=== PATIENT | male | born 1960 | race Caucasian/White ===

== ENCOUNTER 2019-05-22 19:24 | Inpatient (IN) ==
[2019-05-22] MEDS ORDERED: INSULIN REGULAR, HUMAN 1 UNIT/0.01 ML UNIT ONE (21:17)
[2019-05-22] MEDS ORDERED: IPRATROPIUM/ALBUTEROL 3 ML AMPUL.NEB NEB PRN (21:28)
[2019-05-22] MEDS ORDERED: METOPROLOL TARTRATE 5 MG/5 ML VIAL IV ONE ×2 (21:28→22:19)
[2019-05-22] MEDS ORDERED: POTASSIUM CHLORIDE 40 MEQ in DEXTROSE 5% IN WATER 500 ML IV PRN (21:28)
[2019-05-22] MEDS ORDERED: METOCLOPRAMIDE 10 MG/2 ML VIAL IV PRN (21:28)
[2019-05-22] MEDS ORDERED: POLYETHYLENE GLYCOL 3350 17 GM PACKET PO PRN (21:28)
[2019-05-22] MEDS ORDERED: SENNOSIDES 1 TABLET PO PRN (21:28)
[2019-05-22] MEDS ORDERED: MAGNESIUM SULFATE 2 GM/50 ML BAG IV PRN (21:28)
[2019-05-22] MEDS ORDERED: POTASSIUM CHLORIDE 20 MEQ TABLET PO PRN ×2 (21:28)
[2019-05-22] MEDS: INSULIN REGULAR, HUMAN 50 UNIT in 0.9 % SODIUM CHLORIDE 99.5 ML IV SCH (21:30)
[2019-05-22] MEDS ORDERED: cefTRIAXone 2 GM in DEXTROSE 5% IN WATER 50 ML IV SCH (21:30)
--- NOTE | 2019-05-22 21:41 | Internal Med History&Physical ---
Medical - H&P: HPI Patient information: Note initiated : 05/22/19 at 9:37 pm Service Date, if different from initiated Date: [] Patient: Houston Khoury a 58 y/o M admitted on 05/22/19 for DKA. Chief Complaint: [] History of present illness: Mr. Khoury is a 58 year old M Who was brought in by EMS and called by his sister because of concern as he was increasingly weak and was breathing oddly and reported to me that it was suspected to be [place] breathing. Is also tachycardic. Reports some nausea but no vomiting. No abdominal pain. In the ED was tachycardic with a stable blood pressure heart rates 140 initially and then came down to 120s. His blood glucose was 625 and he had a anion gap acidosis. Lactate was within normal limits elevated beta hydroxybutyric acid. Ketones in his urine with leukocyte esterase and WBCs. Patient is a poor historian but he seems to be answering questions appropriately although slowly and sometimes needing to repeat the question. Denies any chest pain or shortness of breath. Admits to to a cough. There is question whether or not he is compliant with his medications. He is on metformin but he says he does miss it sometimes. Is also hyper calcemic in the ED which improved on follow-up chemistry. Patient initially presented to [facility]. Was transferred to [facility] as he did not have any ICU beds available. Patient received 3 L IV fluid and was started on insulin drip in the ED. Review of Systems: Pertinent positives as above. Denies headache/fever/chills/vomiting/chest or abdominal pain/dyspnea/diarrhea. Remaining 10 point review of system reviewed negative Medical - H&P: PMH Medical history: Medical History Erectile dysfunction (Acute) Vision changes (Acute) Osteoarthritis (Chronic) Antinuclear factor positive (Acute) Chronic low back pain (Chronic) Hyperlipidemia (Chronic) Weakness (Chronic) Back pain with left-sided radiculopathy (Chronic) Depression with anxiety (Acute) Tobacco chew use (Chronic) Neuropathy, diabetic (Chronic) Insomnia (Chronic) Shortening, leg, congenital (Chronic) Club foot (Chronic) Gallbladder problem (Chronic) DMII (diabetes mellitus, type 2) (Chronic) Mesenteric adenitis (Chronic) Past Surgical History H/O discectomy (Chronic) H/O eye surgery (Chronic) History of tonsillectomy and adenoidectomy (Chronic) Hx of appendectomy (Chronic) H/O carpal tunnel repair (Chronic) H/O right knee surgery (Chronic) H/O left knee surgery (Chronic) H/O colonoscopy (Chronic) Social History She sounds like lives at home with daughter She was tobacco can a day former smoker Denies alcohol use Social History No Social History Section defined Medical - H&P: Meds Home Medications Medication Instructions Recorded Confirmed Type blood sugar diagnostic See Dose Instructions .ROUTE 09/24/15 02/04/16 Rx .MEDSUPPLY #100 each lancets #60 each 09/24/15 02/04/16 Rx metFORMIN [Glucophage] 500 mg PO BIDCC 30 Days #60 tab 02/18/19 Rx Gabapentin 04/21/19 History metFORMIN [Glucophage] 500 mg PO BIDCC #60 tab 04/21/19 Rx HYDROcodone/APAP 5/325MG [[place] 1 tab PO Q6HP PRN #20 tab 05/12/19 Rx 5-325Mg] Methocarbamol [Robaxin-750] 750 mg PO 3-4XD #20 tab 05/12/19 Rx Ondansetron [Zofran ODT] 4 mg SL Q4-6HP PRN #10 tab 05/12/19 Rx metFORMIN [Glucophage] 850 mg PO BIDCC #60 tab 05/12/19 Rx methylPREDNISolone [Medrol Dose 1 packet PO UD #1 tab.ds.pk 05/12/19 Rx Pack] Allergies Allergy/AdvReac Type Severity Reaction Status Date / Time pregabalin [From Lyrica] AdvReac Hallucinati Verified 04/21/19 00:41 ng Medical - H&P: Exam - Constitutional Exam: General: Lethargic, No acute Distress Eyes/N/T: EOMI, PEERL, DMM Head/Neck: neck supple, normocephalic atraumatic CV: Tachycardic but regular, No murmurs, normal s1/s2 Pulm: Clear b/l, no wheezing/rhonchi/rales Abd: soft, nontender, +BS x4 Ext: no clubbing/cyanosis/edema Neuro: Lethargic but answers questions appropriately although slowly and sometimes needing to repeat question to them. He is alert and oriented x4, no focal deficits, moves all extremities, CN 2-12 grossly intact, symmetrical strength b/l upper/lower, sensations intact b/l upper/lower Skin: warm/dry Medical - H&P: A/P - Narrative A/P Narrative: A: *DKA (DM w/neuropathy): 2/2 suspected noncompliance -On metformin at home but admits to missing on occasion *Anion gap metabolic acidosis: 2/2 above -improving with IVF *UTI: *Hypercalcemia, mild: improving with IVF *Volume depletion: *Depression/anxiety: On fluoxetine *Chronic low back pain: * P: -Insulin drip -Aggressive IVF -f/u chemistry/electrolytes -rocephin pending UC -check A1c -cxr -pt/ot -DM education referral -CM for placement needs -ppx: lovenox/h2 DNR
[2019-05-22] MEDS: 0.9 % SODIUM CHLORIDE 1,000 ML IV SCH (22:03)
[2019-05-22] MEDS: 0.9 % SODIUM CHLORIDE 10 ML SYRINGE IV SCH (22:05)
[2019-05-22 22:26] LABS: Appearance,Urine CLEAR; Bacteria,Urine 0 /hpf (0); Bilirubin,Urine NEG (NEG); Color,Urine STRAW; Culture Indicated,Urine YES; Glucose,Urine (UA) >=500 mg/dL (NEG); Ketones,Urine 80 mg/dL (NEG); Leukocyte Esterase,Urine 25 /uL (NEG); Nitrate,Urine NEG (NEG); Protein,Urine NEG (NEG); Specific Gravity,Urine 1.025 (1.000-1.035); Urine Blood 0.03 mg/dL (<0.03); Urine RBC 0 /hpf (0-1); Urine Squamous Epithelial Cell 0 /hpf (0-4); Urine WBC 25 /hpf (0-4); Urobilinogen,Urine NEG (NEG)
[2019-05-22 22:39] LABS: Blood Urea Nitrogen 49 mg/dl (6-20); Calcium 10.9 mg/dl (8.6-10.4); Carbon Dioxide 14 mmol/L (22-30); Chloride 103 mmol/L (96-108); Glomerular Filtration Rate 100; Glucose 405 mg/dL (70-105)
[2019-05-22 22:46] LABS: Estimated Average Glucose(eAG) 369 mg/dL; Hemoglobin A1C 14.5 % HGB (4.0-6.0)
[2019-05-23] MEDS: 0.9 % SODIUM CHLORIDE 1,000 ML IV SCH (03:15)
[2019-05-23] MEDS: DEXTROSE 5%-1/2NS 1,000 ML IV SCH ×3 (03:16→13:29)
[2019-05-23] MEDS ORDERED: INSULIN REGULAR, HUMAN 1 UNIT/0.01 ML UNIT ONE (03:23)
[2019-05-23] MEDS: INSULIN REGULAR, HUMAN 50 UNIT in 0.9 % SODIUM CHLORIDE 99.5 ML IV SCH ×3 (03:28→17:36)
[2019-05-23] MEDS: 0.9 % SODIUM CHLORIDE 10 ML SYRINGE IV SCH ×3 (06:04→21:55)
[2019-05-23 06:19] LABS: Basophils # (Auto) 0 K/mcL (0.0-0.3); Basophils % (Auto) 0 % (0.0-2.0); Eosinophils # (Auto) 0 K/mcL (0.0-0.7); Eosinophils % (Auto) 0 % (0.0-7.0); Granulocytes % (Auto) 85.4 % (38.0-78.0); Hematocrit 35.1 % (41.0-55.0); Hemoglobin 11.5 g/dL (13.5-16.5); Lymphocytes # (Auto) 0.6 K/mcL (1.5-4.8); Lymphocytes % (Auto) 4.7 % (15.5-49.0); Mean Cell Volume 84.5 fL (80.0-100.0); Mean Corpuscular HGB Conc 32.7 g/dL (31.0-36.0); Mean Platelet Volume 7.6 fL (7.4-10.4); Monocytes # (Auto) 1.3 K/mcL (0.1-0.9); Monocytes % (Auto) 9.9 % (1.0-12.0); Platelet Count 517 K/mcL (140-440); RBC 4.15 M/mcL (4.50-5.90); Red Cell Distribution Width 15.5 % (11.5-14.5); WBC 13.2 K/mcL (4.5-11.0)
[2019-05-23 06:37] LABS: ALT/SGPT 10 U/l (0-40); AST/SGOT 10 U/l (0-37); Albumin 2.3 gm/dL (3.2-5.2); Albumin/Globulin Ratio 0.5 (1.0-2.3); Alkaline Phosphatase 135 U/L (39-117); Beta Hydroxybutyrate 1.38 mmol/L (< 0.27); Bilirubin,Direct < 0.2 mg/dL (0.0-0.3); Bilirubin,Total 0.2 mg/dL (0.0-1.0); Blood Urea Nitrogen 40 mg/dl (6-20); Calcium 10.4 mg/dl (8.6-10.4); Globulin 4.4 gm/dL (2.2-3.7); Glomerular Filtration Rate 106; Glucose 193 mg/dL (70-105); Lactate Dehydrogenase 167 U/L (94-250); Triglycerides 135 mg/dl (<150); Uric Acid 7.6 mg/dL (2.5-8.0)
[2019-05-23 06:38] LABS: Carbon Dioxide 18 mmol/L (22-30); Chloride 112 mmol/L (96-108); Phosphorous 1.6 mg/dL (2.7-4.5)
--- NOTE | 2019-05-23 07:17 | Internal Med Progress Note ---
Medical - PN: Subj Patient information: Note initiated : 05/23/19 at 7:11 am Service Date, if different from initiated Date: [] Patient: Houston Khoury a 58 y/o M admitted on 05/22/19 for DKA. Chief Complaint: [] Interval history: Mr. Khoury is a 58 year old M Who was brought in by EMS and called by his sister because of concern as he was increasingly weak and was breathing oddly and reported to me that it was susp ected to be [place] breathing. Is also tachycardic. Reports some nausea but no vomiting. No abdominal pain. In the ED was tachycardic with a stable blood pressure heart rates 140 initially and then came down to 120s. His blood glucose was 625 and he had a anion gap acidosis. Lactate was within normal limits elevated beta hydroxybutyric acid. Ketones in his urine with leukocyte esterase and WBCs. Patient is a poor historian but he seems to be answering questions appropriately although slowly and sometimes needing to repeat the question. Denies any chest pain or shortness of breath. Admits to to a cough. There is question whether or not he is compliant with his medications. He is on metformin but he says he does miss it sometimes. Is also hyper calcemic in the ED which improved on follow-up chemistry. Patient initially presented to [facility]. Was tr ansferred to [facility] as he did not have any ICU beds available. Patient received 3 L IV fluid and was started on insulin drip in the ED. 05/23 Blood cultures from [facility] showing staph aureus in both bottles of one blood draw with Juancho/B detected. Portal of entry could be toes given breakdown between them. No overnight events. Mentation improving. She will tachycardic. Still on drip and IV fluids on board. Occasional cough and headache but no other complaints. Review of Systems: denies fever/chills/nausea/vomiting/chest or abdominal pain/dyspnea/diarrhea. Otherwise see above. - Constitutional Vitals: Vital Signs Temp Pulse Resp BP Pulse Ox 98.7 F 124 H 22 120/80 98 05/23/19 04:01 05/23/19 01:00 05/23/19 04:01 05/23/19 04:01 05/23/19 04:01 Period Temp Pulse Resp BP Sys/Valdes Pulse Ox Last 24 Hr 98.1 F-98.7 F 122-139 17-31 116-155/79-92 95-98 Intake and Output 05/22/19 05/23/19 05/23/19 21:59 05:59 13:59 Intake Total 1178 20 Output Total 1 1650 360 Balance -1 -132 -378 Weight 86.636 kg Intake & Output: Intake & Output 05/22/19 05/23/19 05/23/19 21:59 05:59 13:59 Intake Total 1178 20 Output Total 1 1650 360 Balance -1 2 -749 Weight 86.636 kg Intake: IV 1178 20 Sodium Chloride 0.9% 1,000 ml @ 1000 200 mls/hr IV .Q5H ABY Rx#: [id number] HumuLIN R 50 UNIT In Sodium 128 20 Chloride 0.9% 99.5 ml @ 7.3 UNIT/HR 14.6 mls/hr IV DUR ABY Rx#:[id number] Rocephin 2 gm In Dextrose 5% in 50 Water 50 ml @ 100 mls/hr IV Q24H ABY Rx#:[id number] Output: Urine Catheter Amount 1650 360 # of times incontinent of urine 1 Other: Urine Appearance Cloudy Clear Uretheral ([place]) Clear Cloudy Urine Color Straw Pale Uretheral ([place]) Straw Straw Urine Odor Normal Exam: General: Lethargy improving, No acute Distress Eyes/N/T: EOMI, Head/Neck: neck supple, CV: Tachycardic but regular, No murmurs, Pulm: Clear b/l, no wheezing/rhonchi/rales Abd: soft, nontender, +BS x4 Ext: no clubbing/cyanosis/edema Neuro: Lethargy improving and answering questions appropriately albeit slowly.no focal deficits, moves all extremities, Skin: warm/dry Medical - PN: Obj Da - Labs CBC & Chem 7: 05/23/19 04:24 05/23/19 04:24 Labs: Abnormal Lab Results 05/23/19 05/23/19 05/22/19 04:24 04:24 22:50 WBC 13.2 H RBC 4.15 L Hgb 11.5 L Hct 35.1 L RDW 15.5 H Plt Count 517 H Gran % 85.4 H Lymph % (Auto) 4.7 L Gran # 11.2 H Lymph # (Auto) 0.6 L [place] # (Auto) 1.3 H Chloride 112 H Carbon Dioxide 18 L 14 L Anion Gap 22.0 H BUN 40 H 49 H Glucose 193 H 405 H Hemoglobin A1c 14.5 H Calcium 10.9 H Phosphorus 1.6 L GGT 78 H Alkaline Phosphatase 135 H Albumin 2.3 L Globulin 4.4 H Albumin/Globulin Ratio 0.5 L Beta-Hydroxybutyrate 1.38 H Urine Glucose (UA) Urine Ketones Urine Occult Blood Ur Leukocyte Esterase Urine WBC 05/22/19 21:34 WBC RBC Hgb Hct RDW Plt Count Gran % Lymph % (Auto) Gran # Lymph # (Auto) [place] # (Auto) Chloride Carbon Dioxide Anion Gap BUN Glucose Hemoglobin A1c Calcium Phosphorus GGT Alkaline Phosphatase Albumin Globulin Albumin/Globulin Ratio Beta-Hydroxybutyrate Urine Glucose (UA) >=500 A Urine Ketones 80 A Urine Occult Blood 0.03 A Ur Leukocyte Esterase 25 A Urine WBC 25 H Meds: Medications Hydrocodone Bitart/Acetaminophen ([place] 5/325mg) 1 tab PO Q6HP PRN; Protocol PRN Reason: Per Pain Protocol Albuterol/Ipratropium (Duoneb) 3 ml NEB Q4HP PRN PRN Reason: Shortness Of Breath Diagnostic Test (Pha) (Accu-Chek) 1 each FS Q1 ABY Last Admin: 05/23/19 07:06 Dose: 1 each Documented by: Enoxaparin Sodium (Lovenox) 40 mg SQ DAILY ABY Famotidine (Pepcid) 20 mg IV Q12 ABY Potassium Chloride 40 meq/ (Dextrose) 520 mls @ 130 mls/hr IV UD PRN PRN Reason: Potassium < 3 Magnesium Sulfate (Magnesium Sulfate) 2 gm in 50 mls @ 50 mls/hr IV UD PRN PRN Reason: Magnesium </= 1.6 Ceftriaxone Sodium 2 gm/ (Dextrose) 50 mls @ 100 mls/hr IV Q24H ABY; Protocol Last Infusion: 05/23/19 03:25 Dose: Infused Documented by: Insulin Human Regular 50 unit/ (Sodium Chloride) 100 mls @ 14.6 mls/hr IV DUR [facility]; Protocol Last Titration: 05/23/19 06:00 Dose: 10.3 unit/hr, 20.6 mls/hr Documented by: Dextrose/Sodium Chloride (Dextrose 5%-1/2ns Iv Solution) 1,000 mls @ 200 mls/hr IV .Q5H [facility] Last Admin: 05/23/19 03:16 Dose: 200 mls/hr Documented by: Metoclopramide HCl (Reglan) 10 mg IV Q6HP PRN PRN Reason: Nausea And Vomiting Ondansetron HCl (Zofran) 4 mg IV Q4HP PRN PRN Reason: Nausea And Vomiting Polyethylene Glycol (Miralax) 17 gm PO DAILYP PRN PRN Reason: Constipation Potassium Chloride (Kdur) 40 meq PO UD PRN PRN Reason: Potssium is 3-3.5 Potassium Chloride (Kdur) 40 meq PO UD PRN PRN Reason: Potassium < 3 Senna (Senokot) 2 tab PO DAILYP PRN PRN Reason: Constipation Sodium Chloride (Saline Flush) 10 ml IV Q8 [facility] Last Admin: 05/23/19 06:04 Dose: Not Given Documented by: Medical - PN: A/P - Time Spent With Patient Total time spent is greater than 50% in coordination of care (as documented) at patient's floor/unit and/or counseling patient: - Narrative A/P Narrative: A: *DKA (DM w/neuropathy): 2/2 suspected noncompliance and infection -On metformin at home but admits to missing on occasion -A1c 14.5 *Bacteremia(Staph Aureus, Juancho/B detected) 3/4 bottles so far: -source possibly toes given skin breakdown *Sepsis: *Encephalopathy (Lethargy): 2/2 above *Anion gap metabolic acidosis: 2/2 above -improving with IVF *?UTI: *Hypercalcemia, mild: resolved with IVF *Volume depletion: improved *Depression/anxiety: On fluoxetine *Chronic low back pain: *hypophos: P: -Insulin drip transition to SQ insulin -IVF -f/u chemistry/electrolytes -zyvox/rocephin pending BC/UC -repeat BC in AM -echo pending -ID consult -restart home metformin, will need insulin therapy -pt/ot -DM education referral -CM for placement needs -ppx: lovenox/h2 DNR
[2019-05-23] MEDS: ENOXAPARIN 40 MG/0.4 ML SYRINGE SQ SCH (08:36)
[2019-05-23] MEDS: PHOSPHORUS 250 MG TABLET PO SCH ×3 (08:36→20:51)
--- NOTE | 2019-05-23 08:56 | XRay Report ---
HISTORY: Cough, diabetes FINDINGS: There is mild prominence of the interstitial lung markings bilaterally. This may be due to crowding of normal pulmonary vascular markings and some scatter artifact due to the patient's large body habitus. A superimposed mild interstitial inflammatory process cannot be entirely excluded. There is no lobar consolidation or mass.. The heart size, mediastinum and pleura are normal. IMPRESSION: Subtle nonspecific interstitial lung markings bilaterally, as described above. Interpreted and Authenticated by: Geoff Elizabeth 05/23/19
[2019-05-23] MEDS ORDERED: LINEZOLID 600 MG TABLET PO SCH (09:00)
[2019-05-23] MEDS ORDERED: FAMOTIDINE/PF 20 MG/2 ML VIAL IV SCH (09:00)
[2019-05-23] MEDS ORDERED: MAG HYDROX/AL HYDROX/SIMETH 30 ML ORAL.SUSP PO ONE (09:00)
[2019-05-23] MEDS ORDERED: METHOCARBAMOL 750 MG TABLET PO PRN (09:41)
[2019-05-23] MEDS ORDERED: LINEZOLID 600 MG/300 ML BAG IV SCH (10:30)
[2019-05-23] MEDS ORDERED: METOPROLOL TARTRATE 5 MG/5 ML VIAL IV ONE (10:43)
[2019-05-23] MEDS: ONDANSETRON 4 MG/2 ML VIAL IV PRN (10:43)
[2019-05-23] MEDS ORDERED: DAPTOmycin 500 MG VIAL IV SCH (10:45)
[2019-05-23] MEDS ORDERED: BACLOFEN 10 MG TABLET PO ONE (10:53)
[2019-05-23] MEDS ORDERED: SIMETHICONE 80 MG TAB.CHEW CHEWED ONE (10:53)
[2019-05-23] MEDS: HYDROcodone/APAP 5/325MG TABLET PO PRN ×2 (11:04→20:51)
[2019-05-23] MEDS: PANTOPRAZOLE 40 MG PACKET PO SCH (11:13)
[2019-05-23 11:31] LABS: Blood Urea Nitrogen 32 mg/dl (6-20); Calcium 10.1 mg/dl (8.6-10.4); Carbon Dioxide 20 mmol/L (22-30); Glomerular Filtration Rate 112; Glucose 157 mg/dL (70-105)
[2019-05-23 11:32] LABS: Chloride 111 mmol/L (96-108)
[2019-05-23 11:48] LABS: Anisocytosis FEW (NONE SEEN); Band Neutrophils % 1 % (0-10); Lymphocytes % 3 % (15-49); Monocytes % (Manual) 7 % (1-12); Myelocytes % 1 % (0-0); Platelet Estimate INCREASED (NORMAL); RBC Morphology ABNORM (NORMAL); Segmented Neutrophils % 88 % (38-78)
[2019-05-23] MEDS ORDERED: INSULIN GLARGINE, HUMAN 1 UNIT/0.01 ML SQ ONE (11:49)
[2019-05-23] MEDS ORDERED: DEXTROSE 50% 50 ML VIAL IV PRN (11:51)
[2019-05-23] MEDS ORDERED: DEXTROSE 31 GM ORAL.SUSP PO PRN (11:51)
[2019-05-23] MEDS: ceFAZolin 1 GM VIAL IV SCH ×2 (11:58→21:56)
[2019-05-23] MEDS ORDERED: 0.45 % SODIUM CHLORIDE 1,000 ML IV ONE (13:22)
[2019-05-23] MEDS ORDERED: INSULIN REGULAR, HUMAN 50 UNIT in 0.9 % SODIUM CHLORIDE 99.5 ML IV PRN (16:00)
[2019-05-23] MEDS: INSULIN LISPRO 1 UNIT/0.01 ML UNIT SQ SCH ×2 (16:33→21:03)
[2019-05-23] MEDS: metFORMIN 850 MG TABLET PO SCH (16:33)
--- NOTE | 2019-05-23 17:41 | Infectious Disease Consult ---
History of Present Illness Patient information: Note initiated : 05/23/19 at 5:38 pm Service Date, if different from initiated Date: [] Patient: Houston Khoury 58 y/o M admitted on 05/22/19 for DKA. Chief Complaint: [] Consult date: 05/23/19 Requesting Physician: Mega Ornelas Reason for Consult: Staph aureus bacteremia Chief complaint: confusion History of present illness: HPI obtained from records as pt is confused and no family at bedside: Mr. Khoury is a 58 year old man with PMHx of : - uncontrolled DM2, on metformin He was brought in by EMS after his sister called because of weakness, change in breathing pattern, nausea. In addition he had also been c/o neck pain since last 3 weeks or so, worse with movements. He was seen in [facility] ED on 05/12 for that, and sent home with Medrol dose pack after CT neck w/o contrast showed osteoarthritis and degenerative disc ds, did not show any evidence of infection. Of note his BS at that time was 322. A referral to Dr Echeverria was made to manage his diabetes. He had similar visits to [facility] ED in 04/2019 for hyperglycemia. Patient initially presented to [facility]. Was transferred to [facility] as he did not have any ICU beds available. Patient received 3 L IV fluid and was started on insulin drip in the ED over there. At admission to [facility] on 05/22; HR 140s , afebrile, RR 28, BP 120/106. Labs showed WBC of 9, ESR 105, blood glucose was 625 and he had a anion gap acidosis with elevated beta hydroxybutyric acid. UA had +ve Ketones with leukocyte esterase and WBCs. Blood cultures from [facility] showing staph aureus in both bottles of one blood draw initially reported as Juancho/B detected but this was inaccurate. Dr. Martell discussed with lab and the previously reported result was clarified. Pt was on PO LInezolid and IV ceftriaxone initially per primary team which was changed to IV Cefazolin on 05/23. His anion gap closed on 05/23 . Review of Systems ROS unobtainable: due to mental status All systems PM: reviewed and no additional remarkable complaints except as stated Past History Past family history: no sick contacts Medications and Allergies Home Medications Medication Instructions Recorded Confirmed Type Ondansetron [Zofran ODT] 4 mg SL Q4-6HP PRN #10 tab 05/12/19 05/23/19 Rx metFORMIN [Glucophage] 850 mg PO BIDCC #60 tab 05/12/19 05/23/19 Rx Blood-Glucose Meter [Blood Glucose 1 each [facility] 05/23/19 05/23/19 History Monitoring] Hydrocodone/APAP 7.5/325Mg [[place] 1 tab PO Q6HP PRN 05/23/19 05/23/19 History 7.5-325Mg] Lancets [Blood Lancets] 1 each [facility] 05/23/19 05/23/19 History Methocarbamol [Robaxin-750] 750 mg PO 3-4XD PRN 05/23/19 05/23/19 History Allergies Allergy/AdvReac Type Severity Reaction Status Date / Time pregabalin [From Lyrica] AdvReac Intermediate Hallucinati Verified 05/23/19 06:40 ng Physical Examination Vital signs: Temp Pulse Resp BP Pulse Ox 36.2 C 127 H 23 H 141/88 96 05/23/19 08:01 05/23/19 14:18 05/23/19 14:18 05/23/19 14:01 05/23/19 14:18 General appearance: appears uncomfortable Eyes pulmonary: nonicteric ENT: oropharynx moist Auscultation: bilateral: clear (decreased BS at bases, rest clear) Cardiovascular: other (s1 s2 normal, has 2/6 systolic murmur at Rt 2nd ICS) Gastrointestinal: normoactive bowel sounds, non-tender, non-distended Integumentary: other (has onychomycosis of both feet toenails, dry skin over both forefeet) Musculoskeletal: joint tenderness (over lower cervical and upper thoracic spine, no fluctuance) unable to assess due to mental status Results - Laboratory Findings CBC and BMP: 05/24/19 03:41 05/24/19 03:41 Abnormal lab findings: Abnormal Labs 05/22/19 05/22/19 05/23/19 21:34 22:50 04:24 WBC 13.2 H RBC 4.15 L Hgb 11.5 L Hct 35.1 L RDW 15.5 H Plt Count 517 H Gran % 85.4 H Lymph % (Auto) 4.7 L Gran # 11.2 H Lymph # (Auto) 0.6 L [place] # (Auto) 1.3 H Seg Neutrophils % Lymphocytes % Myelocytes % Platelet Estimate RBC Morphology Anisocytosis Chloride Carbon Dioxide 14 L Anion Gap 22.0 H BUN 49 H Creatinine Glucose 405 H Hemoglobin A1c 14.5 H Calcium 10.9 H Phosphorus GGT Alkaline Phosphatase C-Reactive Protein Albumin Globulin Albumin/Globulin Ratio Beta-Hydroxybutyrate Urine Glucose (UA) >=500 A Urine Ketones 80 A Urine Occult Blood 0.03 A Ur Leukocyte Esterase 25 A Urine WBC 25 H 05/23/19 05/23/19 05/23/19 04:24 04:24 10:41 WBC RBC Hgb Hct RDW Plt Count Gran % Lymph % (Auto) Gran # Lymph # (Auto) [place] # (Auto) Seg Neutrophils % 88 H Lymphocytes % 3 L Myelocytes % 1 H Platelet Estimate Increased A RBC Morphology Abnorm A Anisocytosis Few A Chloride 112 H 111 H Carbon Dioxide 18 L 20 L Anion Gap BUN 40 H 32 H Creatinine 0.6 L Glucose 193 H 157 H Hemoglobin A1c Calcium Phosphorus 1.6 L GGT 78 H Alkaline Phosphatase 135 H C-Reactive Protein Albumin 2.3 L Globulin 4.4 H Albumin/Globulin Ratio 0.5 L Beta-Hydroxybutyrate 1.38 H Urine Glucose (UA) Urine Ketones Urine Occult Blood Ur Leukocyte Esterase Urine WBC 05/23/19 10:41 WBC RBC Hgb Hct RDW Plt Count Gran % Lymph % (Auto) Gran # Lymph # (Auto) [place] # (Auto) Seg Neutrophils % Lymphocytes % Myelocytes % Platelet Estimate RBC Morphology Anisocytosis Chloride Carbon Dioxide Anion Gap BUN Creatinine Glucose Hemoglobin A1c Calcium Phosphorus GGT Alkaline Phosphatase C-Reactive Protein 10.4 H Albumin Globulin Albumin/Globulin Ratio Beta-Hydroxybutyrate Urine Glucose (UA) Urine Ketones Urine Occult Blood Ur Leukocyte Esterase Urine WBC Microbiology: Microbiology 05/22/19 21:34 Urine - [place] Urine Culture - Preliminary 05/22/19 22:55 Nose MRSA (PCR) - Final Assessment and Plan - Narrative A/P Narrative: A: 1. MSSA bacteremia: mec A gene neg, / bottles +ve on 05/22 - risk factors: uncontrolled DM2, dry skin over both feet, onychomycosis, ? Staphylococcus aureus colonization - high risk for endocarditis 2. Diabetic ketoacidosis: triggered by (1), recent prescription of Medrol dose pack, continued use of metformin instead of insulin (per PCP) - encephalopathy Recommendations: - Start IV Cefazolin 2 gm q8 hrs. Stop all other antibiotics - Repeat blood Cx every other day until negative blood Cx x 48 hrs - await TTE report - will decide if LITZY needed or not - aggressive blood sugar control to keep FSBS between 140-180 mg% - will have low threshold for imaging of other parts of body such as joints/spine if symptoms warrant, persistent +ve blood Cx will follow Roland Martell MD Infectious diseases
[2019-05-23] MEDS ORDERED: INSULIN GLARGINE, HUMAN 1 UNIT/0.01 ML SQ SCH (21:00)
[2019-05-24] MEDS: HYDROcodone/APAP 5/325MG TABLET PO PRN ×4 (01:13→21:33)
[2019-05-24] MEDS: ceFAZolin 1 GM VIAL IV SCH ×3 (05:49→21:43)
[2019-05-24] MEDS: 0.9 % SODIUM CHLORIDE 10 ML SYRINGE IV SCH ×4 (05:50→21:44)
[2019-05-24 06:29] LABS: Basophils # (Auto) 0 K/mcL (0.0-0.3); Basophils % (Auto) 0.5 % (0.0-2.0); Eosinophils # (Auto) 0.1 K/mcL (0.0-0.7); Eosinophils % (Auto) 0.6 % (0.0-7.0); Hematocrit 30.7 % (41.0-55.0); Hemoglobin 9.9 g/dL (13.5-16.5); Lymphocytes # (Auto) 0.9 K/mcL (1.5-4.8); Lymphocytes % (Auto) 9.8 % (15.5-49.0); Mean Cell Volume 83.6 fL (80.0-100.0); Mean Corpuscular HGB Conc 32.4 g/dL (31.0-36.0); Mean Platelet Volume 8.2 fL (7.4-10.4); Monocytes % (Auto) 11.1 % (1.0-12.0); Platelet Count 415 K/mcL (140-440); RBC 3.67 M/mcL (4.50-5.90); Red Cell Distribution Width 14.6 % (11.5-14.5)
[2019-05-24 06:48] LABS: ALT/SGPT 19 U/l (0-40); AST/SGOT 32 U/l (0-37); Albumin 2.6 gm/dL (3.2-5.2); Albumin/Globulin Ratio 0.7 (1.0-2.3); Alkaline Phosphatase 140 U/L (39-117); Bilirubin,Direct < 0.2 mg/dL (0.0-0.3); Bilirubin,Total < 0.2 mg/dL (0.0-1.0); Calcium 9.6 mg/dl (8.6-10.4); Carbon Dioxide 22 mmol/L (22-30); Chloride 103 mmol/L (96-108); Globulin 3.8 gm/dL (2.2-3.7); Glomerular Filtration Rate 112; Glucose 210 mg/dL (70-105); Lactate Dehydrogenase 144 U/L (94-250); Triglycerides 163 mg/dl (<150); Uric Acid 5.5 mg/dL (2.5-8.0)
[2019-05-24 06:49] LABS: Blood Urea Nitrogen 20 mg/dl (6-20); Phosphorous 2.5 mg/dL (2.7-4.5)
[2019-05-24] MEDS: PANTOPRAZOLE 40 MG PACKET PO SCH (07:30)
[2019-05-24] MEDS: INSULIN LISPRO 1 UNIT/0.01 ML UNIT SQ SCH ×4 (07:33→21:32)
[2019-05-24] MEDS: metFORMIN 850 MG TABLET PO SCH ×2 (07:34→18:05)
--- NOTE | 2019-05-24 07:54 | Internal Med Progress Note ---
Medical - PN: Subj Patient information: Note initiated : 05/24/19 at 7:45 am Service Date, if different from initiated Date: [] Patient: Houston Khoury a 58 y/o M admitted on 05/22/19 for DKA. Chief Complaint: [] Interval history: Mr. Khoury is a 58 year old M Who was brought in by EMS and called by his sister because of concern as he was increasingly weak and was breathing oddly and reported to me that it was susp ected to be [place] breathing. Is also tachycardic. Reports some nausea but no vomiting. No abdominal pain. In the ED was tachycardic with a stable blood pressure heart rates 140 initially and then came down to 120s. His blood glucose was 625 and he had a anion gap acidosis. Lactate was within normal limits elevated beta hydroxybutyric acid. Ketones in his urine with leukocyte esterase and WBCs. Patient is a poor historian but he seems to be answering questions appropriately although slowly and sometimes needing to repeat the question. Denies any chest pain or shortness of breath. Admits to to a cough. There is question whether or not he is compliant with his medications. He is on metformin but he says he does miss it sometimes. Is also hyper calcemic in the ED which improved on follow-up chemistry. Patient initially presented to [facility]. Was tr ansferred to [facility] as he did not have any ICU beds available. Patient received 3 L IV fluid and was started on insulin drip in the ED. 05/23 Blood cultures from [facility] showing staph aureus in both bottles of one blood draw initially reported as [place]/B detected but this was inaccurate. Dr. post discussed with lab and the previously reported result was clarified. Portal of entry could be toes given breakdown between them. No overnight events. Mentation improving. She will tachycardic. Still on drip and IV fluids on board. Occasional cough and headache but no other complaints. 05/24 Patient feeling better today. Alert and awake and able to tolerate diet. Asked how long he is been here in a few other orientation questions and explained to him that he was first at [facility] and then brought over here and he stated "that is why I was confused on exactly where I was at. " Does admit to neck pain which is new started 3 weeks ago. But it occurred while he was in his car in the drive-through and twisted his neck with immediate pain and is been bothering him since but does admit that is a little bit better. Does have chronic back pain but that is not any worse. No other complaints or overnight events. Urine culture growing staph aureus. Check neck MRI today and follow-up on echo results. Review of Systems: denies headache/fever/chills/nausea/vomiting/chest or abdominal pain/cough/dyspnea/diarrhea. Otherwise see above. - Constitutional Vitals: Vital Signs Temp Pulse Resp BP Pulse Ox 98.4 F 129 H 17 159/97 96 05/24/19 00:01 05/23/19 18:51 05/24/19 06:01 05/24/19 06:01 05/24/19 02:00 Period Temp Pulse Resp BP Sys/Valdes Pulse Ox Last 24 Hr 97.2 F-98.4 F 118-133 16-27 93-159/50-105 94-98 Intake and Output 05/23/19 05/24/19 05/24/19 21:59 05:59 13:59 Intake Total 600 Output Total 550 610 Balance -550 -10 Weight 87.271 kg Intake & Output: Intake & Output 05/23/19 05/24/19 05/24/19 21:59 05:59 13:59 Intake Total 600 Output Total 550 610 Balance -550 -10 Weight 87.271 kg Intake: Oral 600 Output: Urine Catheter Amount 550 325 Void Amount 285 Other: Urine Appearance Clear Urine Color Light Faith Exam: General: alert and awake, No acute Distress Eyes/N/T: EOMI, Head/Neck: neck supple, CV: Tachycardic but regular, No murmurs, Pulm: Clear b/l, no wheezing/rhonchi/rales Abd: soft, nontender, +BS x4 Ext: no clubbing/cyanosis/edema Neuro: Alert and awake, mentation significantly improved no focal deficits, indicating appropriately. Skin: warm/dry Medical - PN: Obj Da - Labs CBC & Chem 7: 05/24/19 03:41 05/24/19 03:41 Labs: Abnormal Lab Results 05/24/19 05/24/19 05/24/19 03:41 03:41 03:41 WBC RBC 3.67 L Hgb 9.9 L Hct 30.7 L RDW 14.6 H Plt Count Gran % Lymph % (Auto) 9.8 L Gran # Lymph # (Auto) 0.9 L [place] # (Auto) 1.0 H Seg Neutrophils % Lymphocytes % Myelocytes % Platelet Estimate RBC Morphology Anisocytosis Chloride Carbon Dioxide Anion Gap BUN Creatinine 0.6 L Glucose 210 H Hemoglobin A1c Calcium Phosphorus 2.5 L GGT 107 H Alkaline Phosphatase 140 H C-Reactive Protein 8.3 H Albumin 2.6 L Globulin 3.8 H Albumin/Globulin Ratio 0.7 L Triglycerides 163 H Beta-Hydroxybutyrate Urine Glucose (UA) Urine Ketones Urine Occult Blood Ur Leukocyte Esterase Urine WBC 05/23/19 05/23/19 05/23/19 10:41 10:41 04:24 WBC RBC Hgb Hct RDW Plt Count Gran % Lymph % (Auto) Gran # Lymph # (Auto) [place] # (Auto) Seg Neutrophils % 88 H Lymphocytes % 3 L Myelocytes % 1 H Platelet Estimate Increased A RBC Morphology Abnorm A Anisocytosis Few A Chloride 111 H Carbon Dioxide 20 L Anion Gap BUN 32 H Creatinine 0.6 L Glucose 157 H Hemoglobin A1c Calcium Phosphorus GGT Alkaline Phosphatase C-Reactive Protein 10.4 H Albumin Globulin Albumin/Globulin Ratio Triglycerides Beta-Hydroxybutyrate Urine Glucose (UA) Urine Ketones Urine Occult Blood Ur Leukocyte Esterase Urine WBC 05/23/19 05/23/19 05/22/19 04:24 04:24 22:50 WBC 13.2 H RBC 4.15 L Hgb 11.5 L Hct 35.1 L RDW 15.5 H Plt Count 517 H Gran % 85.4 H Lymph % (Auto) 4.7 L Gran # 11.2 H Lymph # (Auto) 0.6 L [place] # (Auto) 1.3 H Seg Neutrophils % Lymphocytes % Myelocytes % Platelet Estimate RBC Morphology Anisocytosis Chloride 112 H Carbon Dioxide 18 L 14 L Anion Gap 22.0 H BUN 40 H 49 H Creatinine Glucose 193 H 405 H Hemoglobin A1c 14.5 H Calcium 10.9 H Phosphorus 1.6 L GGT 78 H Alkaline Phosphatase 135 H C-Reactive Protein Albumin 2.3 L Globulin 4.4 H Albumin/Globulin Ratio 0.5 L Triglycerides Beta-Hydroxybutyrate 1.38 H Urine Glucose (UA) Urine Ketones Urine Occult Blood Ur Leukocyte Esterase Urine WBC 05/22/19 21:34 WBC RBC Hgb Hct RDW Plt Count Gran % Lymph % (Auto) Gran # Lymph # (Auto) [place] # (Auto) Seg Neutrophils % Lymphocytes % Myelocytes % Platelet Estimate RBC Morphology Anisocytosis Chloride Carbon Dioxide Anion Gap BUN Creatinine Glucose Hemoglobin A1c Calcium Phosphorus GGT Alkaline Phosphatase C-Reactive Protein Albumin Globulin Albumin/Globulin Ratio Triglycerides Beta-Hydroxybutyrate Urine Glucose (UA) >=500 A Urine Ketones 80 A Urine Occult Blood 0.03 A Ur Leukocyte Esterase 25 A Urine WBC 25 H Meds: Medications Hydrocodone Bitart/Acetaminophen ([place] 5/325mg) 1 tab PO Q6HP PRN; Protocol PRN Reason: Per Pain Protocol Last Admin: 05/24/19 01:13 Dose: 1 tab Documented by: Albuterol/Ipratropium (Duoneb) 3 ml NEB Q4HP PRN PRN Reason: Shortness Of Breath Cefazolin Sodium (Ancef) 2 gm IV Q8H [facility] Last Admin: 05/24/19 05:49 Dose: 2 gm Documented by: Dextrose (Dextrose 50%) 0 ml IV UD PRN PRN Reason: Hypoglycemia Diagnostic Test (Pha) (Accu-Chek) 1 each FS [facility] Last Admin: 05/24/19 07:30 Dose: 1 each Documented by: Enoxaparin Sodium (Lovenox) 40 mg SQ DAILY [facility] Last Admin: 05/23/19 08:36 Dose: 40 mg Documented by: Glucose (Insta-Glucose) 15 gm PO PRN PRN PRN Reason: Hypoglycemia Potassium Chloride 40 meq/ (Dextrose) 520 mls @ 130 mls/hr IV UD PRN PRN Reason: Potassium < 3 Magnesium Sulfate (Magnesium Sulfate) 2 gm in 50 mls @ 50 mls/hr IV UD PRN PRN Reason: Magnesium </= 1.6 Insulin Human Regular 50 unit/ (Sodium Chloride) 100 mls @ 14.6 mls/hr IV Q6HP PRN; Protocol PRN Reason: HypERglycemia Insulin Glargine (Lantus) 10 unit SQ BID [facility] Last Admin: 05/23/19 21:02 Dose: 10 unit Documented by: Insulin Human Lispro (Humalog) 0 unit SQ ACHS [facility]; Protocol Last Admin: 05/24/19 07:33 Dose: 2 units Documented by: Met[facility] ([facility]) [facility] Last Admin: 05/24/19 07:34 Dose: 850 mg Documented by: Methocarbamol (Robaxin) 750 mg PO 3-4XD PRN PRN Reason: Muscle Spasm Metoclopramide HCl (Reglan) 10 mg IV Q6HP PRN PRN Reason: Nausea And Vomiting Ondansetron HCl (Zofran) 4 mg IV Q4HP PRN PRN Reason: Nausea And Vomiting Last Admin: 05/23/19 10:43 Dose: 4 mg Documented by: Pantoprazole Sodium (Protonix) 40 mg PO QAMAC [facility] Last Admin: 05/24/19 07:30 Dose: 40 mg Documented by: Polyethylene Glycol (Miralax) 17 gm PO DAILYP PRN PRN Reason: Constipation Potassium Chloride (Kdur) 40 meq PO UD PRN PRN Reason: Potssium is 3-3.5 Potassium Chloride (Kdur) 40 meq PO UD PRN PRN Reason: Potassium < 3 Senna (Senokot) 2 tab PO DAILYP PRN PRN Reason: Constipation Sodium Chloride (Saline Flush) 10 ml IV Q8 [facility] Last Admin: 05/24/19 05:50 Dose: 10 ml Documented by: Sodium Phosphate (Pot Phosphate Neutral) 250 mg PO TID [facility] Stop: 05/24/19 09:01 Last Admin: 05/23/19 20:51 Dose: 250 mg Documented by: Medical - PN: A/P - Time Spent With Patient Total time spent is greater than 50% in coordination of care (as documented) at patient's floor/unit and/or counseling patient: - Narrative A/P Narrative: A: *DKA (DM w/neuropathy): 2/2 suspected noncompliance and infection -On metformin at home but admits to missing on occasion -A1c 14.5 *Bacteremia(Staph Aureus) 3/4 bottles so far: -source possibly toes given skin breakdown *UTI (Staph Aureus): *Sepsis: improved *Encephalopathy (Lethargy): 2/2 above *Anion gap metabolic acidosis: 2/2 above -resolved *Hypercalcemia, mild: resolved with IVF *Volume depletion: improved *Depression/anxiety: On fluoxetine *Chronic low back pain: *hypophos: P: -restart home metformin, started lantus (titrate up) -Neck MRI -repeat BC today -ID following, cefazolin -echo pending -pt/ot -DM education referral -CM for placement needs -ppx: lovenox/h2 DNR
[2019-05-24] MEDS ORDERED: POTASSIUM CHLORIDE 20 MEQ in 0.45 % SODIUM CHLORIDE 1,000 ML IV SCH (08:00)
[2019-05-24] MEDS: METOPROLOL TARTRATE 5 MG/5 ML VIAL IV SCH ×2 (08:21→10:23)
[2019-05-24] MEDS: ONDANSETRON 4 MG/2 ML VIAL IV PRN (08:36)
[2019-05-24] MEDS ORDERED: INSULIN GLARGINE, HUMAN 1 UNIT/0.01 ML SQ SCH (09:00)
[2019-05-24] MEDS: PHOSPHORUS 250 MG TABLET PO SCH (09:01)
[2019-05-24] MEDS: ENOXAPARIN 40 MG/0.4 ML SYRINGE SQ SCH (09:01)
[2019-05-24] MEDS ORDERED: DILTIAZEM 25 MG/5 ML VIAL IV ONE (10:23)
[2019-05-24] MEDS ORDERED: diphenhydrAMINE 25 MG CAPSULE PO PRN ×2 (10:25→12:41)
[2019-05-24] MEDS ORDERED: DEXTROSE 31 GM ORAL.SUSP PO PRN (12:41)
[2019-05-24] MEDS ORDERED: MAGNESIUM SULFATE 2 GM/50 ML BAG IV PRN (12:41)
[2019-05-24] MEDS ORDERED: METOCLOPRAMIDE 10 MG/2 ML VIAL IV PRN (12:41)
[2019-05-24] MEDS ORDERED: IPRATROPIUM/ALBUTEROL 3 ML AMPUL.NEB NEB PRN (12:41)
[2019-05-24] MEDS ORDERED: POTASSIUM CHLORIDE 20 MEQ TABLET PO PRN ×2 (12:41)
[2019-05-24] MEDS ORDERED: SENNOSIDES 1 TABLET PO PRN (12:41)
[2019-05-24] MEDS ORDERED: DEXTROSE 50% 50 ML VIAL IV PRN (12:41)
[2019-05-24] MEDS ORDERED: ONDANSETRON 4 MG/2 ML VIAL IV PRN (12:41)
[2019-05-24] MEDS ORDERED: INSULIN REGULAR, HUMAN 50 UNIT in 0.9 % SODIUM CHLORIDE 99.5 ML IV PRN (12:41)
[2019-05-24] MEDS ORDERED: METOPROLOL TARTRATE 5 MG/5 ML VIAL IV ONE (14:18)
[2019-05-24] MEDS: NICOTINE 21 MG PATCH TOPICAL SCH (14:42)
[2019-05-24] MEDS: METOPROLOL TARTRATE 25 MG TABLET PO SCH ×2 (14:43→21:33)
[2019-05-24] MEDS: POLYETHYLENE GLYCOL 3350 17 GM PACKET PO PRN (15:32)
--- NOTE | 2019-05-24 15:42 | Magnetic Resonance Report ---
History: Severe neck pain radiating to the arm, possible osteomyelitis TECHNIQUE: Multiplanar imaging was performed using multiple pulse sequences in short acquisitions. Patient was unable to remain motionless due to uncontrollable hiccups and severe neck pain. Nursing did provide pain medication during the exam. FINDINGS: There is motion artifact on all pulse sequences. On the STIR pulse sequence there is abnormal increased signal throughout the body of C4 with more subtle increased uptake in the body of C5. There is also subtle increased signal in the nucleus pulposus at C4-5. Posterior to the body of C4-C5, there is a band of abnormal increased signal. It measures proximately 2 to 3 mm thickness and 2.2 cm in length. There is no collapse of the vertebral bodies. There is moderate central canal stenosis at C4-5 with subtle flattening of the cord. The spinal canal stenosis is partially due to moderate size spurs along the posterior border of the C4-C5 disc, which were apparent on the prior CT done on 05/12/19. The spinal canal stenosis is worse on today's study. The C3-4 disc is moderately narrowed due to chronic degeneration. The C5-C6 disc is normal. There is moderate stenosis right-sided neural foramen at C5-C6 due to arthritis in the facet. At C6-7 there is a small midline bulge which is not causing stenosis. IMPRESSION: Limited study due to patient motion artifact. Abnormal signal in the bodies of C4 and C5 which is suggestive of osteomyelitis. Possible small epidural abscess posterior to the bodies of C4 and C5 resulting in moderate spinal canal stenosis Stenosis of the right-sided neural foramen at C5-C6 due to spurs Dr. Ornelas was called with the results Interpreted and Authenticated by: Geoff Elizabeth 05/24/19
[2019-05-24] MEDS: METHOCARBAMOL 750 MG TABLET PO PRN (18:05)
[2019-05-24] MEDS ORDERED: MELATONIN 3 MG TABLET PO SCH ×2 (21:00)
[2019-05-24] MEDS: INSULIN GLARGINE, HUMAN 1 UNIT/0.01 ML SQ SCH (21:32)
[2019-05-25] MEDS: HYDROcodone/APAP 5/325MG TABLET PO PRN ×4 (02:25→19:49)
[2019-05-25] MEDS: 0.9 % SODIUM CHLORIDE 10 ML SYRINGE IV SCH ×3 (05:39→21:26)
[2019-05-25] MEDS: ceFAZolin 1 GM VIAL IV SCH ×3 (05:39→21:26)
[2019-05-25] MEDS: METHOCARBAMOL 750 MG TABLET PO PRN ×4 (06:05→21:06)
[2019-05-25] MEDS ORDERED: PANTOPRAZOLE 40 MG PACKET PO SCH (07:30)
[2019-05-25] MEDS: INSULIN LISPRO 1 UNIT/0.01 ML UNIT SQ SCH ×4 (07:52→21:26)
--- NOTE | 2019-05-25 07:57 | Internal Med Progress Note ---
Medical - PN: Subj Patient information: Note initiated : 05/25/19 at 7:50 am Service Date, if different from initiated Date: [] Patient: Houston Khoury a 58 y/o M admitted on 05/22/19 for DKA. Chief Complaint: [] Interval history: Mr. Khoury is a 58 year old M Who was brought in by EMS and called by his sister because of concern as he was increasingly weak and was breathing oddly and reported to me that it was susp ected to be [place] breathing. Is also tachycardic. Reports some nausea but no vomiting. No abdominal pain. In the ED was tachycardic with a stable blood pressure heart rates 140 initially and then came down to 120s. His blood glucose was 625 and he had a anion gap acidosis. Lactate was within normal limits elevated beta hydroxybutyric acid. Ketones in his urine with leukocyte esterase and WBCs. Patient is a poor historian but he seems to be answering questions appropriately although slowly and sometimes needing to repeat the question. Denies any chest pain or shortness of breath. Admits to to a cough. There is question whether or not he is compliant with his medications. He is on metformin but he says he does miss it sometimes. Is also hyper calcemic in the ED which improved on follow-up chemistry. Patient initially presented to [facility]. Was tr ansferred to [facility] as he did not have any ICU beds available. Patient received 3 L IV fluid and was started on insulin drip in the ED. 05/23 Blood cultures from [facility] showing staph aureus in both bottles of one blood draw initially reported as [place]/B detected but this was inaccurate. Dr. post discussed with lab and the previously reported result was clarified. Portal of entry could be toes given breakdown between them. No overnight events. Mentation improving. She will tachycardic. Still on drip and IV fluids on board. Occasional cough and headache but no other complaints. 05/24 Patient feeling better today. Alert and awake and able to tolerate diet. Asked how long he is been here in a few other orientation questions and explained to him that he was first at [facility] and then brought over here and he stated "that is why I was confused on exactly where I was at. " Does admit to neck pain which is new started 3 weeks ago. But it occurred while he was in his car in the drive-through and twisted his neck with immediate pain and is been bothering him since but does admit that is a little bit better. Does have chronic back pain but that is not any worse. No other complaints or overnight events. Urine culture growing staph aureus. Check neck MRI today and follow-up on echo results. 05/25 Overall feeling improved. Does have neck pain. Not severe but it can be quite uncomfortable at times. No headaches. No fevers or chills. 1 of the blood culture sets is positive from yesterday. She wear that his heart rate has been elevated for years, has never seen a anesthesiology faculty. Does have occasional heartburn but otherwise no other complaints. Review of Systems: denies headache/fever/chills/nausea/vomiting/chest or abdominal pain/cough/dyspnea/diarrhea. Otherwise see above. - Constitutional Vitals: Vital Signs Temp Pulse Resp BP Pulse Ox 98.7 F 129 H 17 135/79 96 05/25/19 07:47 05/23/19 18:51 05/25/19 07:47 05/25/19 06:00 05/25/19 07:47 Period Temp Pulse Resp BP Sys/Valdes Pulse Ox Last 24 Hr 97.7 F-98.7 F 14-26 103-150/63-92 96-98 Intake and Output 05/24/19 05/25/19 05/25/19 21:59 05:59 13:59 Intake Total 1240 600 Output Total 700 1450 500 Balance 540 -850 -500 Weight 86.727 kg Intake & Output: Intake & Output 05/24/19 05/25/19 05/25/19 21:59 05:59 13:59 Intake Total 1240 600 Output Total 700 1450 500 Balance 540 -850 -500 Weight 86.727 kg Intake: Oral 1240 600 Output: Urine Catheter Amount 700 1450 500 Other: Meal Dinner Percent of Meal Consumed 100% Urine Appearance Clear Clear Urine Color Bright Yellow Bright Yellow Exam: General: alert and awake, No acute Distress Eyes/N/T: EOMI, Head/Neck: mild discomfort when turning neck to left mild with flexion CV: Tachycardic but regular, No murmurs, Pulm: Clear b/l, no wheezing/rhonchi/rales Abd: soft, nontender, +BS x4 Ext: no clubbing/cyanosis/edema Neuro: Alert and awake, no focal deficits, moves all extremities Skin: warm/dry Medical - PN: Obj Da - Labs CBC & Chem 7: 05/24/19 03:41 05/24/19 03:41 Labs: Abnormal Lab Results 05/24/19 05/24/19 05/24/19 03:41 03:41 03:41 WBC RBC 3.67 L Hgb 9.9 L Hct 30.7 L RDW 14.6 H Plt Count Gran % Lymph % (Auto) 9.8 L Gran # Lymph # (Auto) 0.9 L [place] # (Auto) 1.0 H Seg Neutrophils % Lymphocytes % Myelocytes % Platelet Estimate RBC Morphology Anisocytosis Chloride Carbon Dioxide Anion Gap BUN Creatinine 0.6 L Glucose 210 H Hemoglobin A1c Calcium Phosphorus 2.5 L GGT 107 H Alkaline Phosphatase 140 H C-Reactive Protein 8.3 H Albumin 2.6 L Globulin 3.8 H Albumin/Globulin Ratio 0.7 L Triglycerides 163 H Beta-Hydroxybutyrate Urine Glucose (UA) Urine Ketones Urine Occult Blood Ur Leukocyte Esterase Urine WBC 05/23/19 05/23/19 05/23/19 10:41 10:41 04:24 WBC RBC Hgb Hct RDW Plt Count Gran % Lymph % (Auto) Gran # Lymph # (Auto) [place] # (Auto) Seg Neutrophils % 88 H Lymphocytes % 3 L Myelocytes % 1 H Platelet Estimate Increased A RBC Morphology Abnorm A Anisocytosis Few A Chloride 111 H Carbon Dioxide 20 L Anion Gap BUN 32 H Creatinine 0.6 L Glucose 157 H Hemoglobin A1c Calcium Phosphorus GGT Alkaline Phosphatase C-Reactive Protein 10.4 H Albumin Globulin Albumin/Globulin Ratio Triglycerides Beta-Hydroxybutyrate Urine Glucose (UA) Urine Ketones Urine Occult Blood Ur Leukocyte Esterase Urine WBC 05/23/19 05/23/19 05/22/19 04:24 04:24 22:50 WBC 13.2 H RBC 4.15 L Hgb 11.5 L Hct 35.1 L RDW 15.5 H Plt Count 517 H Gran % 85.4 H Lymph % (Auto) 4.7 L Gran # 11.2 H Lymph # (Auto) 0.6 L [place] # (Auto) 1.3 H Seg Neutrophils % Lymphocytes % Myelocytes % Platelet Estimate RBC Morphology Anisocytosis Chloride 112 H Carbon Dioxide 18 L 14 L Anion Gap 22.0 H BUN 40 H 49 H Creatinine Glucose 193 H 405 H Hemoglobin A1c 14.5 H Calcium 10.9 H Phosphorus 1.6 L GGT 78 H Alkaline Phosphatase 135 H C-Reactive Protein Albumin 2.3 L Globulin 4.4 H Albumin/Globulin Ratio 0.5 L Triglycerides Beta-Hydroxybutyrate 1.38 H Urine Glucose (UA) Urine Ketones Urine Occult Blood Ur Leukocyte Esterase Urine WBC 05/22/19 21:34 WBC RBC Hgb Hct RDW Plt Count Gran % Lymph % (Auto) Gran # Lymph # (Auto) [place] # (Auto) Seg Neutrophils % Lymphocytes % Myelocytes % Platelet Estimate RBC Morphology Anisocytosis Chloride Carbon Dioxide Anion Gap BUN Creatinine Glucose Hemoglobin A1c Calcium Phosphorus GGT Alkaline Phosphatase C-Reactive Protein Albumin Globulin Albumin/Globulin Ratio Triglycerides Beta-Hydroxybutyrate Urine Glucose (UA) >=500 A Urine Ketones 80 A Urine Occult Blood 0.03 A Ur Leukocyte Esterase 25 A Urine WBC 25 H Meds: Medications Hydrocodone Bitart/Acetaminophen ([place] 5/325mg) 1 tab PO Q6HP PRN; Protocol PRN Reason: Per Pain Protocol Last Admin: 05/25/19 02:25 Dose: 1 tab Documented by: Albuterol/Ipratropium (Duoneb) 3 ml NEB Q4HP PRN PRN Reason: Shortness Of Breath Cefazolin Sodium (Ancef) 2 gm IV Q8H [facility] Last Admin: 05/25/19 05:39 Dose: 2 gm Documented by: Dextrose (Dextrose 50%) 0 ml IV UD PRN PRN Reason: Hypoglycemia Diagnostic Test (Pha) (Accu-Chek) 1 each FS ACHS [facility] Last Admin: 05/25/19 07:32 Dose: 1 each Documented by: Diphenhydramine HCl (Benadryl) 25 mg PO HSP PRN PRN Reason: Insomnia Enoxaparin Sodium (Lovenox) 40 mg SQ DAILY [facility] Glucose (Insta-Glucose) 15 gm PO PRN PRN PRN Reason: Hypoglycemia Insulin Human Regular 50 unit/ (Sodium Chloride) 100 mls @ 14.6 mls/hr IV Q6HP PRN; Protocol PRN Reason: HypERglycemia Magnesium Sulfate (Magnesium Sulfate) 2 gm in 50 mls @ 50 mls/hr IV UD PRN PRN Reason: Magnesium </= 1.6 Insulin Glargine (Lantus) 15 unit SQ BID [facility] Last Admin: 05/24/19 21:32 Dose: 15 units Documented by: Insulin Human Lispro (Humalog) 0 unit SQ [facility]; Protocol Last Admin: 05/24/19 21:32 Dose: 6 units Documented by: Melatonin (Melatonin 3mg Tablet) 3 mg PO QHS [facility] Last Admin: 05/24/19 21:33 Dose: 3 mg Documented by: Metformin HCl (Glucophage) 850 mg PO BIDCC [facility] Last Admin: 05/24/19 18:05 Dose: 850 mg Documented by: Methocarbamol (Robaxin) 750 mg PO 3-4XD PRN PRN Reason: Muscle Spasm Last Admin: 05/25/19 06:05 Dose: 750 mg Documented by: Metoclopramide HCl (Reglan) 10 mg IV Q6HP PRN PRN Reason: Nausea And Vomiting Last Admin: 05/24/19 15:32 Dose: 10 mg Documented by: Metoprolol Tartrate (Lopressor) 25 mg PO BID [facility] Last Admin: 05/24/19 21:33 Dose: 25 mg Documented by: Nicotine (Nicoderm) 21 mg TOPICAL DAILY@1000 [facility] Last Admin: 05/24/19 14:42 Dose: 21 mg Documented by: Ondansetron HCl (Zofran) 4 mg IV Q4HP PRN PRN Reason: Nausea And Vomiting Last Admin: 05/24/19 18:05 Dose: 4 mg Documented by: Pantoprazole Sodium (Protonix) 40 mg PO QAMAC [facility] Last Admin: 05/25/19 07:32 Dose: 40 mg Documented by: Polyethylene Glycol (Miralax) 17 gm PO DAILYP PRN PRN Reason: Constipation Last Admin: 05/24/19 15:32 Dose: 17 gm Documented by: Potassium Chloride (Kdur) 40 meq PO UD PRN PRN Reason: Potssium is 3-3.5 Potassium Chloride (Kdur) 40 meq PO UD PRN PRN Reason: Potassium < 3 Senna (Senokot) 2 tab PO DAILYP PRN PRN Reason: Constipation Sodium Chloride (Saline Flush) 10 ml IV Q8 [facility] Last Admin: 05/25/19 05:39 Dose: 10 ml Documented by: Medical - PN: A/P - Time Spent With Patient Total time spent is greater than 50% in coordination of care (as documented) at patient's floor/unit and/or counseling patient: - Narrative A/P Narrative: A: *DKA (DM w/neuropathy): 2/2 suspected noncompliance and infection -On metformin at home but admits to missing on occasion -A1c 14.5 *Bacteremia(Staph Aureus) 3/4 bottles so far: -source possibly toes given skin breakdown -echo no vegetations (normal LV/RV & Valves) *UTI (MSSA): *Sepsis: improved *Encephalopathy (Lethargy): 2/2 above, Resoled *Cervical spine pain, mostly left of spine: pain started when he twisted his neck going at a drive-through 3wks ago, has had pain since but has overall improved although still intermittently quite uncomfortable -MRI C-spine poor study d/t movemnt but showed abnormal signal in bodies of C4-C5 and change posterior to the those bodies, findings could be suggestive of osteo and possible small abscess vs inflammation/edema from trauma - Rads suggest MRI w/contrast in 2 days. *Anion gap metabolic acidosis: 2/2 above -resolved *Hypercalcemia, mild: resolved with IVF *Volume depletion: improved *Depression/anxiety: On fluoxetine *Chronic low back pain: stable *hypophos: improved *Sinus Tachycardia, Chronic: has been 120-130's as far back as 2014 records -TSH wnl P: -restart home metformin, started lantus (15-18 bid) -Neck MRI w/contrast tomorrow -pending surveillance BC -ID following, cefazolin -lopressor bid (increse) -prn pain meds, robaxin, heating pad -pt/ot -DM education referral -CM for placement needs -f/u with cardio regarding chronic sinus tach -ppx: lovenox/h2 DNR
[2019-05-25] MEDS: metFORMIN 850 MG TABLET PO SCH ×2 (08:45→16:53)
[2019-05-25] MEDS: METOPROLOL TARTRATE 25 MG TABLET PO SCH ×2 (08:46→21:06)
[2019-05-25] MEDS: INSULIN GLARGINE, HUMAN 1 UNIT/0.01 ML SQ SCH (08:46)
[2019-05-25] MEDS: POLYETHYLENE GLYCOL 3350 17 GM PACKET PO PRN (08:48)
[2019-05-25] MEDS ORDERED: ENOXAPARIN 40 MG/0.4 ML SYRINGE SQ SCH (09:00)
[2019-05-25] MEDS ORDERED: INSULIN GLARGINE, HUMAN 1 UNIT/0.01 ML SQ ONE (10:30)
[2019-05-25] MEDS ORDERED: METOPROLOL TARTRATE 25 MG TABLET PO ONE (10:32)
[2019-05-25] MEDS ORDERED: CALCIUM CARBONATE 500 MG TAB.CHEW CHEWED PRN ×2 (10:34→13:01)
[2019-05-25] MEDS ORDERED: MAG HYDROX/AL HYDROX/SIMETH 30 ML ORAL.SUSP PO PRN ×2 (10:34→13:01)
[2019-05-25] MEDS: NICOTINE 21 MG PATCH TOPICAL SCH (10:55)
[2019-05-25] MEDS ORDERED: POTASSIUM CHLORIDE 20 MEQ TABLET PO PRN ×2 (13:01)
[2019-05-25] MEDS ORDERED: POLYETHYLENE GLYCOL 3350 17 GM PACKET PO PRN (13:01)
[2019-05-25] MEDS ORDERED: SENNOSIDES 1 TABLET PO PRN (13:01)
[2019-05-25] MEDS ORDERED: ONDANSETRON 4 MG/2 ML VIAL IV PRN (13:01)
[2019-05-25] MEDS ORDERED: MAGNESIUM SULFATE 2 GM/50 ML BAG IV PRN (13:01)
[2019-05-25] MEDS ORDERED: DEXTROSE 31 GM ORAL.SUSP PO PRN (13:01)
[2019-05-25] MEDS ORDERED: IPRATROPIUM/ALBUTEROL 3 ML AMPUL.NEB NEB PRN (13:01)
[2019-05-25] MEDS ORDERED: DEXTROSE 50% 50 ML VIAL IV PRN (13:01)
[2019-05-25] MEDS ORDERED: INSULIN REGULAR, HUMAN 50 UNIT in 0.9 % SODIUM CHLORIDE 99.5 ML IV PRN (13:01)
[2019-05-25] MEDS ORDERED: METOCLOPRAMIDE 10 MG/2 ML VIAL IV PRN (13:01)
[2019-05-25] MEDS ORDERED: diphenhydrAMINE 25 MG CAPSULE PO PRN (13:01)
[2019-05-25] MEDS ORDERED: MELATONIN 3 MG TABLET PO SCH (21:00)
[2019-05-25] MEDS ORDERED: METOPROLOL TARTRATE 25 MG TABLET PO SCH (21:00)
[2019-05-25] MEDS ORDERED: INSULIN GLARGINE, HUMAN 1 UNIT/0.01 ML SQ SCH ×2 (21:00)
[2019-05-26] MEDS: HYDROcodone/APAP 5/325MG TABLET PO PRN ×3 (02:47→15:23)
[2019-05-26] MEDS: METHOCARBAMOL 750 MG TABLET PO PRN ×3 (04:01→15:23)
[2019-05-26] MEDS: 0.9 % SODIUM CHLORIDE 10 ML SYRINGE IV SCH ×2 (05:48→15:23)
[2019-05-26] MEDS: ceFAZolin 1 GM VIAL IV SCH ×2 (05:48→15:22)
--- NOTE | 2019-05-26 07:14 | Internal Med Progress Note ---
Medical - PN: Subj Patient information: Note initiated : 05/26/19 at 7:10 am Service Date, if different from initiated Date: [] Patient: Houston Khoury a 58 y/o M admitted on 05/22/19 for DKA. Chief Complaint: [] Interval history: Mr. Khoury is a 58 year old M Who was brought in by EMS and called by his sister because of concern as he was increasingly weak and was breathing oddly and reported to me that it was susp ected to be [place] breathing. Is also tachycardic. Reports some nausea but no vomiting. No abdominal pain. In the ED was tachycardic with a stable blood pressure heart rates 140 initially and then came down to 120s. His blood glucose was 625 and he had a anion gap acidosis. Lactate was within normal limits elevated beta hydroxybutyric acid. Ketones in his urine with leukocyte esterase and WBCs. Patient is a poor historian but he seems to be answering questions appropriately although slowly and sometimes needing to repeat the question. Denies any chest pain or shortness of breath. Admits to to a cough. There is question whether or not he is compliant with his medications. He is on metformin but he says he does miss it sometimes. Is also hyper calcemic in the ED which improved on follow-up chemistry. Patient initially presented to [facility]. Was tr ansferred to [facility] as he did not have any ICU beds available. Patient received 3 L IV fluid and was started on insulin drip in the ED. 05/23 Blood cultures from [facility] showing staph aureus in both bottles of one blood draw initially reported as [place]/B detected but this was inaccurate. Dr. post discussed with lab and the previously reported result was clarified. Portal of entry could be toes given breakdown between them. No overnight events. Mentation improving. She will tachycardic. Still on drip and IV fluids on board. Occasional cough and headache but no other complaints. 05/24 Patient feeling better today. Alert and awake and able to tolerate diet. Asked how long he is been here in a few other orientation questions and explained to him that he was first at [facility] and then brought over here and he stated "that is why I was confused on exactly where I was at. " Does admit to neck pain which is new started 3 weeks ago. But it occurred while he was in his car in the drive-through and twisted his neck with immediate pain and is been bothering him since but does admit that is a little bit better. Does have chronic back pain but that is not any worse. No other complaints or overnight events. Urine culture growing staph aureus. Check neck MRI today and follow-up on echo results. 05/25 Overall feeling improved. Does have neck pain. Not severe but it can be quite uncomfortable at times. No headaches. No fevers or chills. 1 of the blood culture sets is positive from yesterday. She wear that his heart rate has been elevated for years, has never seen a cotton factor. Does have occasional heartburn but otherwise no other complaints. 05/26 Did have fever last night otherwise no new complaints or overnight events. Still has neck discomfort. 05/24 blood cultures positive for gram-positive cocci, repeat blood cultures this morning done. MRI of neck with contrast ordered. Review of Systems: denies headache/fever/chills/nausea/vomiting/chest or abdominal pain/cough/dyspnea/diarrhea. Otherwise see above. - Constitutional Vitals: Vital Signs Temp Pulse Resp BP Pulse Ox 98.4 F 100 H 16 130/77 96 05/26/19 04:00 05/26/19 04:00 05/26/19 04:00 05/26/19 04:00 05/26/19 04:00 Period Temp Pulse Resp BP Sys/Valdes Pulse Ox Last 24 Hr 98.2 F-101.1 F 84-116 12-22 100-148/70-81 92-98 Intake and Output 05/25/19 05/26/19 05/26/19 21:59 05:59 13:59 Output Total 1 351 Balance -1 -351 Weight 86.409 kg Intake & Output: Intake & Output 05/25/19 05/26/19 05/26/19 21:59 05:59 13:59 Output Total 1 351 Balance -1 -351 Weight 86.409 kg Output: Void Amount 350 # of times incontinent of urine 1 1 Other: Urine Appearance Clear Urine Color Bright Yellow Exam: General: alert and awake, No acute Distress Eyes/N/T: EOMI, Head/Neck: discomfort when turning neck to left and with flexion CV: Tachycardic but regular, No murmurs, Pulm: Clear b/l, no wheezing/rhonchi/rales Abd: soft, nontender, +BS x4 Ext: no clubbing/cyanosis/edema Neuro: Alert and awake, no focal deficits, moves all extremities Skin: warm/dry Medical - PN: Obj Da - Labs CBC & Chem 7: 05/24/19 03:41 05/24/19 03:41 Labs: Abnormal Lab Results 05/24/19 05/24/19 05/24/19 03:41 03:41 03:41 RBC 3.67 L Hgb 9.9 L Hct 30.7 L RDW 14.6 H Lymph % (Auto) 9.8 L Lymph # (Auto) 0.[address] [place] # (Auto) 1.0 H Seg Neutrophils % Lymphocytes % Myelocytes % Platelet Estimate RBC Morphology Anisocytosis Chloride Carbon Dioxide BUN Creatinine 0.6 L Glucose 210 H Phosphorus 2.5 L GGT 107 H Alkaline Phosphatase 140 H C-Reactive Protein 8.3 H Albumin 2.6 L Globulin 3.8 H Albumin/Globulin Ratio 0.7 L Triglycerides 163 H 05/23/19 05/23/19 05/23/19 10:41 10:41 04:24 RBC Hgb Hct RDW Lymph % (Auto) Lymph # (Auto) [place] # (Auto) Seg Neutrophils % 88 H Lymphocytes % 3 L Myelocytes % 1 H Platelet Estimate Increased A RBC Morphology Abnorm A Anisocytosis Few A Chloride 111 H Carbon Dioxide 20 L BUN 32 H Creatinine 0.6 L Glucose 157 H Phosphorus GGT Alkaline Phosphatase C-Reactive Protein 10.4 H Albumin Globulin Albumin/Globulin Ratio Triglycerides Meds: Medications Hydrocodone Bitart/Acetaminophen ([place] 5/325mg) 1 tab PO Q6HP PRN; Protocol PRN Reason: Per Pain Protocol Last Admin: 05/26/19 02:47 Dose: 1 tab Documented by: Al Hydrox/Mg Hydrox/Simethicone (Maalox) 30 ml PO Q4-6HP PRN PRN Reason: Dyspepsia Albuterol/Ipratropium (Duoneb) 3 ml NEB Q4HP PRN PRN Reason: Shortness Of Breath Calcium Carbonate/Glycine (Tums) 500 mg CHEWED Q4HP PRN PRN Reason: Dyspepsia Cefazolin Sodium (Ancef) 2 gm IV Q8H [facility] Last Admin: 05/26/19 05:48 Dose: 2 gm Documented by: Dextrose (Dextrose 50%) 0 ml IV UD PRN PRN Reason: Hypoglycemia Diagnostic Test (Pha) (Accu-Chek) 1 each FS [facility] Last Admin: 05/25/19 21:12 Dose: 1 each Documented by: Diphenhydramine HCl (Benadryl) 25 mg PO HSP PRN PRN Reason: Insomnia Last Admin: 05/25/19 21:06 Dose: 25 mg Documented by: Enoxaparin Sodium (Lovenox) 40 mg SQ DAILY [facility] Glucose (Insta-Glucose) 15 gm PO PRN PRN PRN Reason: Hypoglycemia Insulin Human Regular 50 unit/ (Sodium Chloride) 100 mls @ 14.6 mls/hr IV Q6HP PRN; Protocol PRN Reason: HypERglycemia Magnesium Sulfate (Magnesium Sulfate) 2 gm in 50 mls @ 50 mls/hr IV UD PRN PRN Reason: Magnesium </= 1.6 Insulin Glargine (Lantus) 18 unit SQ BID [facility] Last Admin: 05/25/19 21:25 Dose: 18 unit Documented by: Insulin Human Lispro (Humalog) 0 unit SQ [facility]; Protocol Last Admin: 05/25/19 21:26 Dose: 6 units Documented by: Melatonin (Melatonin 3mg Tablet) 3 mg PO QHS [facility] Last Admin: 05/25/19 21:07 Dose: 3 mg Documented by: [facility] ([facility]) [facility] Last Admin: 05/25/19 16:53 Dose: 850 mg Documented by: Methocarbamol (Robaxin) 750 mg PO 3-4XD PRN PRN Reason: Muscle Spasm Last Admin: 05/26/19 04:01 Dose: 750 mg Documented by: Metoclopramide HCl (Reglan) 10 mg IV Q6HP PRN PRN Reason: Nausea And Vomiting Metoprolol Tartrate (Lopressor) 37.5 mg PO BID [facility] Last Admin: 05/25/19 21:06 Dose: 37.5 mg Documented by: Nicotine (Nicoderm) 21 mg TOPICAL DAILY@1000 ABY Ondansetron HCl (Zofran) 4 mg IV Q4HP PRN PRN Reason: Nausea And Vomiting Last Admin: 05/25/19 19:49 Dose: 4 mg Documented by: Pantoprazole Sodium (Protonix) 40 mg PO QAMAC [facility]Y Polyethylene Glycol (Miralax) 17 gm PO DAILYP PRN PRN Reason: Constipation Potassium Chloride (Kdur) 40 meq PO UD PRN PRN Reason: Potssium is 3-3.5 Potassium Chloride (Kdur) 40 meq PO UD PRN PRN Reason: Potassium < 3 Senna (Senokot) 2 tab PO DAILYP PRN PRN Reason: Constipation Sodium Chloride (Saline Flush) 10 ml IV Q8 [facility] Last Admin: 05/26/19 05:48 Dose: 10 ml Documented by: Medical - PN: A/P - Time Spent With Patient Total time spent is greater than 50% in coordination of care (as documented) at patient's floor/unit and/or counseling patient: - Narrative A/P Narrative: A: *DKA (DM w/neuropathy): 2/2 suspected noncompliance and infection -On metformin at home but admits to missing on occasion -A1c 14.5 *Bacteremia(Staph Aureus): -source possibly toes given skin breakdown -echo no vegetations (normal LV/RV & Valves) *UTI (MSSA): *Sepsis: resolved *Encephalopathy (Lethargy): 2/2 above, Resolved *Cervical spine pain, mostly left of spine: pain started when he twisted his neck going at a drive-through 3wks ago, has had pain since but has overall improved although still intermittently quite uncomfortable -MRI C-spine poor study d/t movemnt but showed abnormal signal in bodies of C4-C5 and change posterior to the those bodies, findings could be suggestive of osteo and possible small abscess vs inflammation/edema from trauma - Rads suggest MRI w/contrast in 2 days. *Anion gap metabolic acidosis: 2/2 above -resolved *Hypercalcemia, mild: resolved with IVF *Volume depletion: improved *Depression/anxiety: On fluoxetine *Chronic low back pain: stable *hypophos: improved *Sinus Tachycardia, Chronic: has been 120-130's as far back we I see records,2013. -TSH wnl -better rates on BB P: -restarted home metformin, started lantus (now at 20 bid) -Neck MRI w/contrast today -pending surveillance BC -ID following, cefazolin -lopressor bid -prn pain meds, robaxin, heating pad -pt/ot -CM for placement needs -f/u with cardio regarding chronic sinus tach -ppx: lovenox/h2 DNR
[2019-05-26] MEDS ORDERED: PANTOPRAZOLE 40 MG PACKET PO SCH (07:30)
[2019-05-26] MEDS: metFORMIN 850 MG TABLET PO SCH (07:59)
[2019-05-26] MEDS: INSULIN LISPRO 1 UNIT/0.01 ML UNIT SQ SCH ×2 (07:59→11:58)
[2019-05-26] MEDS ORDERED: INSULIN GLARGINE, HUMAN 1 UNIT/0.01 ML SQ SCH (09:00)
[2019-05-26] MEDS ORDERED: ENOXAPARIN 40 MG/0.4 ML SYRINGE SQ SCH (09:00)
[2019-05-26] MEDS: METOPROLOL TARTRATE 25 MG TABLET PO SCH (09:47)
[2019-05-26] MEDS ORDERED: NICOTINE 21 MG PATCH TOPICAL SCH (10:00)
[2019-05-26] MEDS ORDERED: GADOBENATE DIMEGLUMINE 20 ML/VIAL IV ONE (10:30)
--- NOTE | 2019-05-26 12:11 | Magnetic Resonance Report ---
CLINICAL INFORMATION: Neck pain and fever. Blood cultures positive for gram-positive cocci COMPARISON: Cervical MRI two days prior on 05/24/2019 TECHNIQUE: Sagittal T2, sagittal T1 FLAIR, T1 FLAIR post Magnevist fat saturation sagittal STIR and axial T1 post Magnevist fat saturation were acquired. FINDINGS: The cervical spine is anatomically aligned. A 12 mm focus of increased signal on the STIR images involving the posterior left portion of the C4 vertebral body is contiguous with increased signal in the posterior C4-5 disc compatible with associated discitis. Adjacent to this region, there is a moderate (24 mm), abscess in the left anterior epidural space compressing the left anterior cervical cord, obliterating the left lateral recess and impinging the exiting left C5 nerve root. Moreover, there is extensive inflammation in the prevertebral paraspinous musculature from C1 through C5. A 2 cm abscess in the paraspinous soft tissues, adjacent to the left anterior C3 vertebral body, has increased. There is also a long (6 x 2 cm) abscess in the left anterior paraspinous region extending from C4 through C7 with surrounding inflammation which extends into the left IV foramen from C3-4 through C5-6. Inflammation surrounds all left foramen transversarium at the levels. There is mild compression of the adjacent left internal jugular vein which shows vague increased signal [place] likely due to slow flow rather than thrombosis. IMPRESSION: 12 mm focus of osteomyelitis posterior C4 vertebral body with focal C4-5 discitis. Adjacent to the discitis, a 2.4 cm abscess extends into the left anterior epidural space and left lateral recess impinging the left cervical cord resulting in focal ischemia. It also encroaches on the exiting left C5 nerve root. This has worsened considerably than previous exam. There is also marked inflammation in the prevertebral and retropharyngeal soft tissues. Within this region, there is a 6.2 cm abscess anterior to the left anterior C3-C7 vertebral bodies with inflammatory extension to the adjacent left IV foraminal and foramen transversarium with compression of the adjacent left internal jugular vein. Increased signal noted in the left IJ which could indicate early thrombosis suggest ultrasound. A smaller (22 mm) abscess seen anterior to C3 vertebral body which has also worsened. Strongly suggest spine surgery consultation for decompression and debridement Interpreted and Authenticated by: Ariel Molina 05/26/19
--- NOTE | 2019-05-26 13:40 | Internal Med Progress Note ---
Medical - Auxillary Note - Subjective Patient Information: Note initiated : 05/26/19 at 1:38 pm Service Date, if different from initiated Date: [] Patient: Houston Khoury 58 y/o M admitted on 05/22/19 for DKA. Chief Complaint: [] Vital Signs Temp Pulse Resp BP Pulse Ox 98.8 F 91 H 20 123/64 95 05/26/19 12:00 05/26/19 12:00 05/26/19 12:00 05/26/19 12:00 05/26/19 12:00 Period Temp Pulse Resp BP Sys/Valdes Pulse Ox Last 24 Hr 98.4 F-101.1 F 84-116 12-20 100-140/64-79 91-98 Intake and Output 05/25/19 05/26/19 05/26/19 21:59 05:59 13:59 Intake Total 360 Output Total 1 351 600 Balance -1 -351 -240 Weight 190 lb 8 oz Medications Hydrocodone Bitart/Acetaminophen ([place] 5/325mg) 1 tab PO Q6HP PRN; Protocol PRN Reason: Per Pain Protocol Last Admin: 05/26/19 09:48 Dose: 1 tab Documented by: Al Hydrox/Mg Hydrox/Simethicone (Maalox) 30 ml PO Q4-6HP PRN PRN Reason: Dyspepsia Albuterol/Ipratropium (Duoneb) 3 ml NEB Q4HP PRN PRN Reason: Shortness Of Breath Calcium Carbonate/Glycine (Tums) 500 mg CHEWED Q4HP PRN PRN Reason: Dyspepsia Cefazolin Sodium (Ancef) 2 gm IV Q8H [facility] Last Admin: 05/26/19 05:48 Dose: 2 gm Documented by: Dextrose (Dextrose 50%) 0 ml IV UD PRN PRN Reason: Hypoglycemia Diagnostic Test (Pha) (Accu-Chek) 1 each FS ACHS [facility] Last Admin: 05/26/19 11:48 Dose: 1 each Documented by: Diphenhydramine HCl (Benadryl) 25 mg PO HSP PRN PRN Reason: Insomnia Last Admin: 05/25/19 21:06 Dose: 25 mg Documented by: Enoxaparin Sodium (Lovenox) 40 mg SQ DAILY [facility] Last Admin: 05/26/19 09:46 Dose: 40 mg Documented by: Glucose (Insta-Glucose) 15 gm PO PRN PRN PRN Reason: Hypoglycemia Magnesium Sulfate (Magnesium Sulfate) 2 gm in 50 mls @ 50 mls/hr IV UD PRN PRN Reason: Magnesium </= 1.6 Insulin Glargine (Lantus) 20 unit SQ BID [facility] Last Admin: 05/26/19 09:45 Dose: 20 units Documented by: Insulin Human Lispro (Humalog) 0 unit SQ ACHS [facility]; Protocol Last Admin: 05/26/19 11:58 Dose: 6 units Documented by: Melatonin (Melatonin 3mg Tablet) 3 mg PO QHS [facility] Last Admin: 05/25/19 21:07 Dose: 3 mg Documented by: Metformin HCl (Glucophage) 850 mg PO BIDCC [facility] Last Admin: 05/26/19 07:59 Dose: 850 mg Documented by: Methocarbamol (Robaxin) 750 mg PO 3-4XD PRN PRN Reason: Muscle Spasm Last Admin: 05/26/19 09:49 Dose: 750 mg Documented by: Metoclopramide HCl (Reglan) 10 mg IV Q6HP PRN PRN Reason: Nausea And Vomiting Metoprolol Tartrate (Lopressor) 37.5 mg PO BID [facility] Last Admin: 05/26/19 09:47 Dose: 37.5 mg Documented by: Nicotine (Nicoderm) 21 mg TOPICAL DAILY@1000 [facility] Last Admin: 05/26/19 11:58 Dose: 21 mg Documented by: Ondansetron HCl (Zofran) 4 mg IV Q4HP PRN PRN Reason: Nausea And Vomiting Last Admin: 05/25/19 19:49 Dose: 4 mg Documented by: Pantoprazole Sodium (Protonix) 40 mg PO QAMAC [facility] Last Admin: 05/26/19 07:29 Dose: 40 mg Documented by: Polyethylene Glycol (Miralax) 17 gm PO DAILYP PRN PRN Reason: Constipation Potassium Chloride (Kdur) 40 meq PO UD PRN PRN Reason: Potssium is 3-3.5 Potassium Chloride (Kdur) 40 meq PO UD PRN PRN Reason: Potassium < 3 Senna (Senokot) 2 tab PO DAILYP PRN PRN Reason: Constipation Sodium Chloride (Saline Flush) 10 ml IV Q8 [facility] Last Admin: 05/26/19 05:48 Dose: 10 ml Documented by: Result Diagarams 05/24/19 03:41 05/24/19 03:41 Abnormal Labs 05/24/19 05/24/19 05/24/19 03:41 03:41 03:41 RBC 3.67 L Hgb 9.9 L Hct 30.7 L RDW 14.6 H Lymph % (Auto) 9.8 L Lymph # (Auto) 0.9 L [place] # (Auto) 1.0 H Creatinine 0.6 L Glucose 210 H Phosphorus 2.5 L GGT 107 H Alkaline Phosphatase 140 H C-Reactive Protein 8.3 H Albumin 2.6 L Globulin 3.8 H Albumin/Globulin Ratio 0.7 L Triglycerides 163 H Reviewed MRI imaging. Epidural abscess with discitis and impending cord compromise. Emergent transfer consultation sort with neurosurgeon at [facility]. Neurosurgery will review images and will call back with advice. Updated patient's daughter Kailee about need for transfer and treatment plan. Time spent 25 minutes
--- NOTE | 2019-05-26 14:17 | Infectious Disease Prog Note ---
Subjective Patient information: Note initiated : 05/26/19 at 2:13 pm Service Date, if different from initiated Date: [] Patient: Houston Khoury 58 y/o M admitted on 05/22/19 for DKA. Chief Complaint: [] Interval history: Pt reports pain in the neck, feels it is slightly better than few days ago. Denied any fevrs, chills, n/v, diarrhea. Objective Objective Narrative: ao x 3, in nad no thrush chest has VBS, with decreased BS at bases s1 s2 normal, nom/r/g bs ++ nttd has point tenderness over cervical spine and upper thoracic spine power 4/5 all 4 limbs sensation to fine touch and pressure absent in b/l toes, legs (below knees). intact in upper extremities. no edema peripheral pulses palpable - Vital Signs Vital signs: Vital Signs Temp Pulse Resp BP BP Pulse Ox 05/26/19 12:00 37.1 C 91 H 20 123/64 95 05/26/19 08:00 37.7 C H 103 H 18 127/76 91 05/26/19 04:00 36.9 C 100 H 16 130/77 96 05/25/19 22:27 36.9 C 84 14 100/70 92 05/25/19 20:29 38.4 C H 116 H 12 134/78 95 05/25/19 20:00 95 05/25/19 16:33 20 05/25/19 16:23 37.3 C H 20 127/79 92 05/25/19 14:23 36.9 C 18 140/78 98 Intake and Output 05/26/19 05/26/19 05/26/19 05:59 13:59 21:59 Intake Total 360 Output Total 351 600 Balance -351 -240 Intake: Oral 360 Output: Void Amount 350 600 # of times incontinent of urine 1 Other: Meal Breakfast Percent of Meal Consumed 50% Feeding Ability Independent Urine Appearance Clear Clear Urine Color Bright Yellow Dark Yellow Intake & Output: Intake & Output 05/26/19 05/26/19 05/26/19 05:59 13:59 21:59 Intake Total 360 Output Total 351 600 Balance -351 -240 Intake: Oral 360 Output: Void Amount 350 600 # of times incontinent of urine 1 Other: Meal Breakfast Percent of Meal Consumed 50% Feeding Ability Independent Urine Appearance Clear Clear Urine Color Bright Yellow Dark Yellow - Lab 05/24/19 03:41 05/24/19 03:41 Most recent lab results Calcium 9.6 mg/dl (8.6-10.4) 05/24/19 03:41 Phosphorus 2.5 mg/dL (2.7-4.5) L 05/24/19 03:41 Magnesium 1.7 mg/dL (1.6-2.5) 05/24/19 03:41 Microbiology 05/24/19 03:49 Blood Blood Culture - Preliminary Staphylococcus aureus 05/24/19 03:41 Blood Blood Culture - Preliminary Staphylococcus aureus 05/22/19 21:34 Urine - [place] Urine Culture - Final Staphylococcus aureus 05/22/19 22:55 Nose MRSA (PCR) - Final Medications Active Medications: Hydrocodone Bitart/Acetaminophen ([place] 5/325mg) 1 tab PO Q6HP PRN; Protocol PRN Reason: Per Pain Protocol Last Admin: 05/26/19 09:48 Dose: 1 tab Documented by: Admin: 05/26/19 02:47 Dose: 1 tab Documented by: Admin: 05/25/19 19:49 Dose: 1 tab Documented by: Admin: 05/25/19 14:35 Dose: 1 tab Documented by: BIENVENIDO Al Hydrox/Mg Hydrox/Simethicone (Maalox) 30 ml PO Q4-6HP PRN PRN Reason: Dyspepsia Albuterol/Ipratropium (Duoneb) 3 ml NEB Q4HP PRN PRN Reason: Shortness Of Breath Calcium Carbonate/Glycine (Tums) 500 mg CHEWED Q4HP PRN PRN Reason: Dyspepsia Cefazolin Sodium (Ancef) 2 gm IV Q8H [facility] Last Admin: 05/26/19 05:48 Dose: 2 gm Documented by: Admin: 05/25/19 21:26 Dose: 2 gm Documented by: Admin: 05/25/19 14:16 Dose: 2 gm Documented by: BIENVENIDO Dextrose (Dextrose 50%) 0 ml IV UD PRN PRN Reason: Hypoglycemia Diagnostic Test (Pha) (Accu-Chek) 1 each FS ACHS [facility] Last Admin: 05/26/19 11:48 Dose: 1 each Documented by: Admin: 05/26/19 07:28 Dose: 1 each Documented by: Admin: 05/25/19 21:12 Dose: 1 each Documented by: Admin: 05/25/19 16:45 Dose: 1 each Documented by: PARISA Diphenhydramine HCl (Benadryl) 25 mg PO HSP PRN PRN Reason: Insomnia Last Admin: 05/25/19 21:06 Dose: 25 mg Documented by: LILIBETH Enoxaparin Sodium (Lovenox) 40 mg SQ DAILY [facility] Last Admin: 05/26/19 09:46 Dose: 40 mg Documented by: ROBERTA Glucose (Insta-Glucose) 15 gm PO PRN PRN PRN Reason: Hypoglycemia Magnesium Sulfate (Magnesium Sulfate) 2 gm in 50 mls @ 50 mls/hr IV UD PRN PRN Reason: Magnesium </= 1.6 Insulin Glargine (Lantus) 20 unit SQ BID [facility] Last Admin: 05/26/19 09:45 Dose: 20 units Documented by: ROBERTA Insulin Human Lispro (Humalog) 0 unit SQ ACHS [facility]; Protocol Last Admin: 05/26/19 11:58 Dose: 6 units Documented by: ROBERTA Comments: 222 Admin: 05/26/19 07:59 Dose: 4 units Documented by: ROBERTA Comments: 191 Admin: 05/25/19 21:26 Dose: 6 units Documented by: Admin: 05/25/19 16:52 Dose: 8 units Documented by: PARISA Melatonin (Melatonin 3mg Tablet) 3 mg PO QHS [facility] Last Admin: 05/25/19 21:07 Dose: 3 mg Documented by: LILIBETH Metformin HCl (Glucophage) 850 mg PO BIDCC [facility] Last Admin: 05/26/19 07:59 Dose: 850 mg Documented by: Admin: 05/25/19 16:53 Dose: 850 mg Documented by: PARISA Methocarbamol (Robaxin) 750 mg PO 3-4XD PRN PRN Reason: Muscle Spasm Last Admin: 05/26/19 09:49 Dose: 750 mg Documented by: Admin: 05/26/19 04:01 Dose: 750 mg Documented by: Admin: 05/25/19 21:06 Dose: 750 mg Documented by: Admin: 05/25/19 16:19 Dose: 750 mg Documented by: PARISA Metoclopramide HCl (Reglan) 10 mg IV Q6HP PRN PRN Reason: Nausea And Vomiting Metoprolol Tartrate (Lopressor) 37.5 mg PO BID [facility] Last Admin: 05/26/19 09:47 Dose: 37.5 mg Documented by: Admin: 05/25/19 21:06 Dose: 37.5 mg Documented by: LILIBETH Nicotine (Nicoderm) 21 mg TOPICAL DAILY@1000 [facility] Last Admin: 05/26/19 11:58 Dose: 21 mg Documented by: ROBERTA Ondansetron HCl (Zofran) 4 mg IV Q4HP PRN PRN Reason: Nausea And Vomiting Last Admin: 05/25/19 19:49 Dose: 4 mg Documented by: VANESSA Pantoprazole Sodium (Protonix) 40 mg PO QAMAC [facility] Last Admin: 05/26/19 07:29 Dose: 40 mg Documented by: ROBERTA Polyethylene Glycol (Miralax) 17 gm PO DAILYP PRN PRN Reason: Constipation Potassium Chloride (Kdur) 40 meq PO UD PRN PRN Reason: Potssium is 3-3.5 Potassium Chloride (Kdur) 40 meq PO UD PRN PRN Reason: Potassium < 3 Senna (Senokot) 2 tab PO DAILYP PRN PRN Reason: Constipation Sodium Chloride (Saline Flush) 10 ml IV Q8 [facility] Last Admin: 05/26/19 05:48 Dose: 10 ml Documented by: Admin: 05/25/19 21:26 Dose: 10 ml Documented by: Admin: 05/25/19 14:16 Dose: 10 ml Documented by: BIENVENIDO Assessment and Plan - Narrative A/P Narrative: A: 1. MSSA bacteremia: mec A gene neg, 4/4 bottles +ve on 05/22, 05/24 - risk factors: uncontrolled DM2, dry skin over both feet, onychomycosis, ? Staphylococcus aureus colonization - high risk for endocarditis 2. Diabetic ketoacidosis: triggered by (1), recent prescription of Medrol dose pack, continued use of metformin instead of insulin (per PCP) - encephalopathy is resolved now 3. Cervical multifocal osteomyelitis, discitis and epidural abscess: - per MRI w/ contrast done today: multifocal discitis, osteomyelitis and 2 abscess as per report below: "12 mm focus of osteomyelitis posterior C4 vertebral body with focal C4-5 discitis. Adjacent to the discitis, a 2.4 cm abscess extends into the left anterior epidural space and left lateral recess impinging the left cervical cord resulting in focal ischemia. It also encroaches on the exiting left C5 nerve root. This has worsened considerably than previous exam. There is also marked inflammation in the prevertebral and retropharyngeal soft tissues. Within this region, there is a 6.2 cm abscess anterior to the left anterior C3-C7 vertebral bodies with inflammatory extension to the adjacent left IV foraminal and foramen transversarium with compression of the adjacent left internal jugular vein. Increased signal noted in the left IJ which could indicate early thrombosis suggest ultrasound. A smaller (22 mm) abscess seen anterior to C3 vertebral body which has also worsened." Recommendations: - Consider immediate transfer to [facility] or [facility] for neurosurgery and decompression. Given worsening abscess size, location in cervical area (which provides innervation to diaphragm); pt should be transferred immediately. - Continue IV Cefazolin 2 gm q8 hrs. - Repeat blood Cx every other day until negative blood Cx x 48 hrs - aggressive blood sugar control to keep FSBS between 140-180 mg% - will have low threshold for imaging of other parts of body such as joints/spine if symptoms warrant, persistent +ve blood Cx Plan communicated with hospitalist. Roland Martell MD Infectious diseases
--- NOTE | 2019-05-26 14:38 | Transfer Summary ---
Transfer Discharge Sum: Prov Patient information: Note initiated : 05/26/19 at 2:33 pm Service Date, if different from initiated Date: [] Patient: Houston Khoury 58 y/o M admitted on 05/22/19 for DKA. Chief Complaint: [] Date of admission: 05/22/19 20:55 Discharge Date: 05/26/19 Consults: 05/23/19 10:36 Consult to Physician [CONS] Routine Comment: staph bacteremia Juancho/B detected Consulting Provider: Roland Martell Reason For Exam: Physician to Consult Receiving physician/facility: [facility] Transfer Discharge Sum: Med - Medications Active and Home Medications: Home Medications Ondansetron [Zofran ODT] 4 mg SL Q4-6HP PRN #10 tab 05/12/19 [Rx Confirmed 05/23/19] metFORMIN [Glucophage] 850 mg PO BIDCC #60 tab 05/12/19 [Rx Confirmed 05/23/19] Blood-Glucose Meter [Blood Glucose Monitoring] 1 each [facility] [place] 05/23/19 [History Confirmed 05/23/19] Hydrocodone/APAP 7.5/325Mg [[place] 7.5-325Mg] 1 tab PO Q6HP PRN 05/23/19 [History Confirmed 05/23/19] Lancets [Blood Lancets] 1 each [facility] [place] 05/23/19 [History Confirmed 05/23/19] Methocarbamol [Robaxin-750] 750 mg PO 3-4XD PRN 05/23/19 [History Confirmed 05/23/19] Active Medications Hydrocodone Bitart/Acetaminophen ([place] 5/325mg) 1 tab PO Q6HP PRN; Protocol PRN Reason: Per Pain Protocol Last Admin: 05/26/19 09:48 Dose: 1 tab Documented by: Al Hydrox/Mg Hydrox/Simethicone (Maalox) 30 ml PO Q4-6HP PRN PRN Reason: Dyspepsia Albuterol/Ipratropium (Duoneb) 3 ml NEB Q4HP PRN PRN Reason: Shortness Of Breath Calcium Carbonate/Glycine (Tums) 500 mg CHEWED Q4HP PRN PRN Reason: Dyspepsia Cefazolin Sodium (Ancef) 2 gm IV Q8H [facility] Last Admin: 05/26/19 05:48 Dose: 2 gm Documented by: Dextrose (Dextrose 50%) 0 ml IV UD PRN PRN Reason: Hypoglycemia Diagnostic Test (Pha) (Accu-Chek) 1 each FS [facility] Last Admin: 05/26/19 11:48 Dose: 1 each Documented by: Diphenhydramine HCl (Benadryl) 25 mg PO HSP PRN PRN Reason: Insomnia Last Admin: 05/25/19 21:06 Dose: 25 mg Documented by: Enoxaparin Sodium (Lovenox) 40 mg SQ DAILY [facility] Last Admin: 05/26/19 09:46 Dose: 40 mg Documented by: Glucose (Insta-Glucose) 15 gm PO PRN PRN PRN Reason: Hypoglycemia Magnesium Sulfate (Magnesium Sulfate) 2 gm in 50 mls @ 50 mls/hr IV UD PRN PRN Reason: Magnesium </= 1.6 Insulin Glargine (Lantus) 20 unit SQ BID [facility] Last Admin: 05/26/19 09:45 Dose: 20 units Documented by: Insulin Human Lispro (Humalog) 0 unit SQ [facility]; Protocol Last Admin: 05/26/19 11:58 Dose: 6 units Documented by: Melatonin (Melatonin 3mg Tablet) 3 mg PO QHS [facility] Last Admin: 05/25/19 21:07 Dose: 3 mg Documented by: [facility]) [facility] Last Admin: 05/26/19 07:59 Dose: 850 mg Documented by: Methocarbamol (Robaxin) 750 mg PO 3-4XD PRN PRN Reason: Muscle Spasm Last Admin: 05/26/19 09:49 Dose: 750 mg Documented by: Metoclopramide HCl (Reglan) 10 mg IV Q6HP PRN PRN Reason: Nausea And Vomiting Metoprolol Tartrate (Lopressor) 37.5 mg PO BID [facility] Last Admin: 05/26/19 09:47 Dose: 37.5 mg Documented by: Nicotine (Nicoderm) 21 mg TOPICAL DAILY@1000 [facility] Last Admin: 05/26/19 11:58 Dose: 21 mg Documented by: Ondansetron HCl (Zofran) 4 mg IV Q4HP PRN PRN Reason: Nausea And Vomiting Last Admin: 05/25/19 19:49 Dose: 4 mg Documented by: Pantoprazole Sodium (Protonix) 40 mg PO QAMAC [facility] Last Admin: 05/26/19 07:29 Dose: 40 mg Documented by: Polyethylene Glycol (Miralax) 17 gm PO DAILYP PRN PRN Reason: Constipation Potassium Chloride (Kdur) 40 meq PO UD PRN PRN Reason: Potssium is 3-3.5 Potassium Chloride (Kdur) 40 meq PO UD PRN PRN Reason: Potassium < 3 Senna (Senokot) 2 tab PO DAILYP PRN PRN Reason: Constipation Sodium Chloride (Saline Flush) 10 ml IV Q8 [facility] Last Admin: 05/26/19 05:48 Dose: 10 ml Documented by: Transfer Discharge Sum: Hosp Hospital course: Transfer diagnosis * Epidural/paravertebral abscess with impending cord compromise. Case discussed with neurosurgeon Dr. Aldridge. Recommends emergent transfer for further management and decompression. Patient transferring to [facility] via air ambulance. Appreciate Dr. Lewis hospitalist's help in coordinating care of this complex patient * C4 vertebral osteomyelitis/abscess C3-C7/C4-C5 discitis-as evident on MRI * Staph aureus bacteremia-surveillance cultures positive. On IV cefazolin per ID * DKA -resolved * Diabetic neuropathy * Cervical pain from vertebral osteomyelitis Brief hospital course Mr. Khoury is a 58 year old M Who was brought in by EMS and called by his sister because of concern as he was increasingly weak and was breathing oddly and reported to me that it was suspected to be [place] breathing. Is also tachycardic. Reports some nausea b ut no vomiting. No abdominal pain. In the ED was tachycardic with a stable blood pressure heart rates 140 initially and then came down to 120s. His blood glucose was 625 and he had a anion gap acidosis. Lactate was within normal limits elevated beta hydroxybutyric acid. Ketones in his urine with leukocyte esterase and WBCs. Patient is a poor historian but he seems to be answering questions appropriately although slowly and sometimes needing to repeat the question. Denies any chest pain or shortness of breath. Admits to to a cough. There is question whether or not he is compliant with his medications. He is on metformin but he says he does miss it sometimes. Is also hyper calcemic in the ED which improved on follow-up chemistry. Patient initially presented to [facility]. Was transferred to [facility] as he did not have any ICU beds available. Patient received 3 L IV fluid and was started on insulin drip in the ED. 05/23 Blood cultures from [facility] showing staph aureus in both bottles of one blood draw initially reported as Juancho/B detected but this was inaccurate. Dr. martell discussed with lab and the previously reported result was clarified. Portal of entry could be toes given breakdown between them. No overnight events. Mentation improving. She will tachycardic. Still on drip and IV fluids on board. Occasional cough and headache but no other complaints. 05/24 Patient feeling better today. Alert and awake and able to tolerate diet. Asked how long he is been here in a few other orientation questions and explained to him that he was first at [facility] and then brought over here and he stated "that is why I was confused on exactly where I was at. " Does admit to neck pain which is new started 3 weeks ago. But it occurred while he was in his car in the drive-through and twisted his neck with immediate pain and is been bothering him since but does admit that is a little bit better. Does have chronic back pain but that is not any worse. No other complaints or overnight events. Urine culture growing staph aureus. Check neck MRI today and follow-up on echo results. 05/25 Overall feeling improved. Does have neck pain. Not severe but it can be quite uncomfortable at times. No headaches. No fevers or chills. 1 of the blood culture sets is positive from yesterday. She wear that his heart rate has been elevated for years, has never seen a dog pound attendant. Does have occasional heartburn but otherwise no other complaints. 05/26 Did have fever last night otherwise no new complaints or overnight events. Warren march has neck discomfort. 05/24 blood cultures positive for gram-positive cocci, repeat blood cultures this morning done. MRI of neck with contrast ordered. Addendum MRI osteomyelitis C4/C4-C5 discitis/2.4 cm epidural abscess along with 6.2 cm abscess anterior to left C3 C7. Impending cord compromise. No neurological deficits at this time. No loss of bladder or bowel function. Will require josefa gent neurosurgical decompression. Case discussed with neurosurgeon/hospitalist at [facility]. Patient transferring via air ambulance for further management. Continue cefazolin. - Time Spent with Patient Total time spent providing and/or coordinating transfer services: Greater than 30 minutes Transfer Discharge Sum: Exam - Constitutional Vitals: Vital Signs Temp Pulse Resp BP Pulse Ox 05/26/19 12:00 98.8 F 91 H 20 123/64 95 05/26/19 08:00 99.8 F H 103 H 18 127/76 91 05/26/19 04:00 98.4 F 100 H 16 130/77 96 05/25/19 22:27 98.5 F 84 14 100/70 92 05/25/19 20:29 101.1 F H 116 H 12 134/78 95 05/25/19 20:00 95 05/25/19 16:33 20 05/25/19 16:23 99.1 F H 20 127/79 92 Intake and Output 05/26/19 05/26/19 05/26/19 05:59 13:59 21:59 Intake Total 360 Output Total 351 600 Balance -351 -240 Intake: Oral 360 Output: Void Amount 350 600 # of times incontinent of urine 1 Other: Meal Breakfast Percent of Meal Consumed 50% Feeding Ability Independent Urine Appearance Clear Clear Urine Color Bright Yellow Dark Yellow Transfer Discharge Sum: Data Procedures and tests throughout hospitalization: Transfer Discharge Sum: A/P - Plan Functional capacity at transfer: bed bound Overall status at transfer: patient is not back to baseline Disposition: [facility]
[2019-05-26] MEDS ORDERED: HYDROmorphone 2 MG/ML VIAL IV PRN (14:49)
== END 2019-05-26 15:50 | disposition short-term general hospital (02) | DRG 637 ==
LOC: ICU 20:55 → MEDSUR 05-25 16:07
PROVIDERS: ADMIT Internal Medicine; ATTEND Internal Medicine